=== PATIENT | female | born 1935 | race African-American/Black ===

== ENCOUNTER 2017-12-21 17:12 | Inpatient (IN) | payer MEDICARE, BC ==
[2017-12-21] VITALS (11 sets, daily range): BP systolic 114–165; BP diastolic 41–85
[~2017-12-21] VITALS: Ht 162.6 cm; Wt 76.9 kg
[~2017-12-21 17:12] MED LIST: CARVEDILOL6.25 MG ORAL; CATAPRES0.1 MG ORAL; ENALAPRIL MALEA20 MG ORAL; INDERAL10 MG PO; VERAPAMIL HCL40 M1 PO
--- NOTE | 2017-12-21 17:21 | Emergency Room Report ---
History of Present Illness General Chief Complaint: Dyspnea/Respdistress Source: EMS Present Illness HPI Patient is brought in by paramedics from nursing facility patient was found to be unresponsive And appears short of breath Upon arrival the patient is unresponsive There is no gag reflex appreciated And appears to be in respiratory failure Paramedics report history of CHF Unknown regarding the duration of symptoms Unknown regarding vomiting or diarrhea Unknown regarding recent fever history of present illness is significantly limited given the patient's emergent and nonverbal presentation Allergies: Coded Allergies: FD AND C BLUE NO.1 (Verified Allergy, Unknown, DIFFICULTY BREATHISNG, 12/22) HYDROMORPHONE (Verified Allergy, Unknown, RESTLESS, DISORIENTED, FLUSHED, 12/22/17) IODINE AND IODIDE CONTAINING PRODUC (Verified Allergy, Unknown, 12/22/17) IV CONTRAST MORPHINE (Verified Allergy, Unknown, ANAPHYLAXIS, 12/22/17) NITROGLYCERIN (Verified Allergy, Unknown, DIFFICULTY BREATHING, 12/22/17) Uncoded Allergies: DYE (FOOD COLORING) (Allergy, Unknown, DIFFICULTY BREATHING, 12/22/17) Patient History Limited by: medical condition Past Medical History: see triage record Pertinent Family History: unable to obtain Last Menstrual Period: Now: No Reviewed Nursing Documentation: PMH: Agreed; PSxH: Agreed Nursing Documentation-PMH Hx Cardiac Problems: Yes Hx Hypertension: Yes Hx Pacemaker: Yes Hx Cancer: No Hx Gastrointestinal Problems: Yes - GERD Hx Neurological Problems: No Review of Systems All Other Systems: limited - Other than the ones mentioned in the history of present illness all others are reviewed however they do stay limited due to the patient's mental status Physical Exam Vital Signs Date Time Temp Pulse Resp B/P (MAP) Pulse Ox O2 Delivery O2 Flow Rate FiO2 12/21/17 16:56 130 152/71 74 Nasal Cannula Sp02 EP Interpretation: reviewed, abnormal - 74% which is abnormally low, upon intubation and 100% oxygenation saturating at 100% which is normal General Appearance: severe distress Head: normocephalic, atraumatic Eyes: bilateral eye PERRL ENT: dry mucus membranes Neck: other - Patient is flexed Respiratory: crackles - Decreased breath sounds, diminished respiratory effort , respiratory failure Cardiovascular #1: regular rate, rhythm, no edema Gastrointestinal: non tender, soft Musculoskeletal: other - Patient unresponsive, GCS of 3 Neurologic: other - Significantly decreased GCS, unresponsive to physical or verbal stimuli Skin: normal color, no rash, other - PICC line in the right upper arm Lymphatic: no adenopathy Procedures Critical Care Time Critical Care Time 50 minutes for multiple re-evaluations critical presentation with respiratory failure requiring multiple reevaluation not including any procedural time Intubation Intubation : Consent: Emergent Intubation Method: orotracheal Tube Size (cm): 7.5 Medications: Succinylcholine Breath Sounds after Intubation: equal Intubation Complications: no complications Post Intubation Xray: Yes Progress/Xray Impression: see report Attempts: One Patient Tolerated: Well Complications: None Medical Decision Making Diagnostic Impression: Primary Impression: Respiratory failure requiring intubation Additional Impression: CHF (congestive heart failure) ER Course Upon arrival the patient is in respiratory failure Requiring airway intubation Patient's x-ray reveals pulmonary congestion cardiomegaly Blood work reveals kidney disease Patient at this time started to become more arousable and awake And admitted for further inpatient care Labs Test 12/21/17 17:05 12/21/17 17:16 12/21/17 17:36 White Blood Count 6.9 K/UL (4.8-10.8) Red Blood Count 3.51 M/UL (4.20-5.40) Hemoglobin 9.8 G/DL (12.0-16.0) Hematocrit 31.2 % (37.0-47.0) Mean Corpuscular Volume 89 FL (80-99) Mean Corpuscular Hemoglobin 27.8 PG (27.0-31.0) Mean Corpuscular Hemoglobin Concent 31.3 G/DL (32.0-36.0) Red Cell Distribution Width 15.9 % (11.6-14.8) Platelet Count 171 K/UL (150-450) Mean Platelet Volume 7.2 FL (6.5-10.1) Neutrophils (%) (Auto) 78.8 % (45.0-75.0) Lymphocytes (%) (Auto) 12.5 % (20.0-45.0) Monocytes (%) (Auto) 4.5 % (1.0-10.0) Eosinophils (%) (Auto) 3.1 % (0.0-3.0) Basophils (%) (Auto) 1.0 % (0.0-2.0) Sodium Level 140 MMOL/L (136-145) Potassium Level 5.2 MMOL/L (3.5-5.1) Chloride Level 105 MMOL/L (98-107) Carbon Dioxide Level 28 MMOL/L (21-32) Anion Gap 7 mmol/L (5-15) Blood Urea Nitrogen 32 mg/dL (7-18) Creatinine 2.1 MG/DL (0.55-1.30) Estimat Glomerular Filtration Rate mL/min (>60) Glucose Level 209 MG/DL (74-106) Lactic Acid Level 1.90 mmol/L (0.66-2.22) Calcium Level 10.9 MG/DL (8.5-10.1) Total Bilirubin 0.4 MG/DL (0.2-1.0) Aspartate Amino Transf (AST/SGOT) 27 U/L (15-37) Alanine Aminotransferase (ALT/SGPT) 24 U/L (12-78) Alkaline Phosphatase 88 U/L (46-116) Total Creatine Kinase 60 U/L (26-308) Creatine Kinase MB 0.5 NG/ML (0.0-3.6) Creatine Kinase MB Relative Index 0.8 Troponin I 0.014 ng/mL (0.000-0.056) Pro-B-Type Natriuretic Peptide 36051 pg/mL (0-125) Total Protein 7.3 G/DL (6.4-8.2) Albumin 2.7 G/DL (3.4-5.0) Globulin 4.6 g/dL Albumin/Globulin Ratio 0.6 (1.0-2.7) Triglycerides Level 70 MG/DL (30-150) Lipase 106 U/L (73-393) Arterial Blood pH 7.330 (7.350-7.450) Arterial Blood Partial Pressure CO2 51.3 mmHg (35.0-45.0) Arterial Blood Partial Pressure O2 303.4 mmHg (75.0-100.0) Arterial Blood HCO3 26.4 mmol/L (22.0-26.0) Arterial Blood Oxygen Saturation 99.2 % (92.0-98.0) Arterial Blood Base Excess 0.1 Chris Test Positive Urine Color Yellow Urine Appearance Clear Urine pH 6 (4.5-8.0) Urine Specific [place] 1.015 (1.005-1.035) Urine Protein 4+ (NEGATIVE) Urine Glucose (UA) Negative (NEGATIVE) Urine Ketones Negative (NEGATIVE) Urine Occult Blood Negative (NEGATIVE) Urine Nitrite Negative (NEGATIVE) Urine Bilirubin Negative (NEGATIVE) Urine Urobilinogen Normal MG/DL (0.0-1.0) Urine Leukocyte Esterase 1+ (NEGATIVE) Urine RBC 0-2 /HPF (0 - 2) Urine WBC 2-4 /HPF (0 - 2) Urine Squamous Epithelial Cells Moderate /LPF (NONE/OCC) Urine Amorphous Sediment Few /LPF (NONE) Urine Bacteria Few /HPF (NONE) EKG Diagnostic Results Rate: normal Rhythm: NSR ST Segments: no acute changes Rhythm Strip Diag. Results EP Interpretation: yes Rate: 60 Rhythm: NSR, no PVC's, no ectopy Chest X-Ray Diagnostic Results Chest X-Ray Diagnostic Results : Chest X-Ray Ordered: Yes # of Views/Limited/Complete: 1 View Indication: Chest Pain EP Interpretation: Yes Interpretation: no consolidation, no pneumothorax, other - ET tube appropriately positions, pulmonary congestion, cardiomegaly, increased left lower lobe markings Impression: Other - CHF, possible infiltrate Electronically Signed by: Yolanda Tate DO CT/MRI/US Diagnostic Results CT/MRI/US Diagnostic Results : Impression CT head:nad Last Vital Signs Date Time Temp Pulse Resp B/P (MAP) Pulse Ox O2 Delivery O2 Flow Rate FiO2 12/21/17 16:56 130 152/71 74 Nasal Cannula Status: improved Disposition: ADMITTED INPATIENT Condition: Critical Yolanda Tate DO Dec 21, 2017 17:21
[2017-12-21 17:49] LABS: EOSINOPHILS % (AUTO) 3.1 % (0.0-3.0); HEMATOCRIT 31.2 % (37.0-47.0); HEMOGLOBIN 9.8 G/DL (12.0-16.0); LYMPHOCYTES % (AUTO) 12.5 % (20.0-45.0); MEAN CORPUSCULAR VOLUME 89 FL (80-99); MONOCYTES % (AUTO) 4.5 % (1.0-10.0); NEUTROPHILS % (AUTO) 78.8 % (45.0-75.0); PLATELET COUNT 171 K/UL (150-450); RED BLOOD COUNT 3.51 M/UL (4.20-5.40); RED CELL DISTRIBUTION WIDTH 15.9 % (11.6-14.8); WHITE BLOOD COUNT 6.9 K/UL (4.8-10.8)
[2017-12-21 17:58] LABS: APPEARANCE,URINE CLEAR; BILIRUBIN, URINE NEGATIVE (NEGATIVE); GLUCOSE, URINE (UA) NEGATIVE (NEGATIVE); KETONES,URINE NEGATIVE (NEGATIVE); LEUKOCYTE ESTERASE ,URINE 1+ (NEGATIVE); NITRITE,URINE NEGATIVE (NEGATIVE); PH,URINE 6 (4.5-8.0); PROTEIN,URINE 4+ (NEGATIVE); UROBILINOGEN,URINE NORMAL MG/DL (0.0-1.0)
[2017-12-21 18:00] LABS: COLOR,URINE YELLOW
[2017-12-21 18:26] LABS: ANION GAP 7 mmol/L (5-15); BLOOD UREA NITROGEN 32 mg/dL (7-18); CALCIUM 10.9 MG/DL (8.5-10.1); CARBON DIOXIDE 28 MMOL/L (21-32); CHLORIDE 105 MMOL/L (98-107); CREATININE 2.1 MG/DL (0.55-1.30); POTASSIUM 5.2 MMOL/L (3.5-5.1); SODIUM 140 MMOL/L (136-145)
[2017-12-21 18:30] LABS: ALANINE AMINOTRANSFERASE 24 U/L (12-78); ALBUMIN 2.7 G/DL (3.4-5.0); ALBUMIN/GLOBULIN RATIO 0.6 (1.0-2.7); ALKALINE PHOSPHATASE 88 U/L (46-116); ASPARTATE AMINO TRANSFERASE 27 U/L (15-37); BILIRUBIN,TOTAL 0.4 MG/DL (0.2-1.0); CKMB 0.5 NG/ML (0.0-3.6); CREATINE KINASE 60 U/L (26-308)
[2017-12-21] MEDS ORDERED: cefTRIAXone 1 GM in NS 55 ML IVPB ONE (18:30)
[2017-12-21] MEDS ORDERED: Vancomycin 1 GM in NS 275 ML IVPB ONE (18:30)
[2017-12-21] MEDS ORDERED: Acetaminophen 650 MG SUPP RECTAL ONE (18:45)
[2017-12-21] MEDS ORDERED: Rx Monitoring Vancomycin MISC PRN (20:00)
[2017-12-21] MEDS ORDERED: Vancomycin 1 GM in D5W 275 ML IV SCH (20:30)
[2017-12-21] MEDS: Cefepime HCl 2 GM in D5W 110 ML IV SCH (20:51)
[2017-12-21] MEDS: Enoxaparin 30mg Inj SUBQ SCH (21:17)
[2017-12-21] MEDS: LORazepam Inj 2mg/ml 1ml IV PRN (22:16)
[2017-12-22] VITALS (25 sets, daily range): BP systolic 128–169; BP diastolic 36–96
--- NOTE | 2017-12-22 00:30 | Consultation ---
DATE OF CONSULTATION: 12/21/2017 CARDIOLOGY CONSULTATION CONSULTING PHYSICIAN: Judd Longoria M.D. REQUESTING PHYSICIAN: Nolan Murray M.D. REASON FOR CONSULTATION: Respiratory failure in the setting of ischemic cardiomyopathy with cardiac defibrillator. HISTORY OF PRESENT ILLNESS: This is an 82-year-old female. She resides at a alf facility. She was apparently short of breath and subsequently found unresponsive. Paramedics were summoned. She was transported to this emergency room. The patient was urgently orally intubated, placed on mechanical ventilation, and admitted to the intensive care unit. I have been asked to assist with for further cardiovascular care. PAST MEDICAL HISTORY: Includes coronary artery disease, history of myocardial infarction, history of cardiac catheterization in 2015 revealing severe right coronary atherosclerosis, history of nonsustained ventricular tachycardia, history of cardiac defibrillator, detrusor instability, hyperlipidemia, hypertensive heart disease, status post hysterectomy, status post cataract surgery, COPD, chronic kidney disease, history of benzodiazepine dependence, chronic migraine, obesity, history of congestive heart failure. MEDICATIONS: Prior to admission, reviewed and reconciled. ALLERGIES: Include Dilaudid, morphine, iodine, and possibly nitroglycerin. SOCIAL HISTORY: Former smoker. No alcohol or substance abuse. FAMILY HISTORY: Noncontributory. REVIEW OF SYSTEMS: Not presently obtainable from patient. Pertinent data outlined above. History of benzodiazepine dependence PHYSICAL EXAMINATION: GENERAL: Awake and alert at this time following commands, orally intubated, mechanically ventilated. VITAL SIGNS: Blood pressure 150/70, heart rate 130, respiratory rate 20, afebrile. HEENT: Conjunctivae are pink. Oropharynx clear. Endotracheal tube in place. NECK: Supple and obese. Cannot assess jugular venous pressure , but carotid upstrokes are palpable bilaterally. LUNGS: With bilateral rales. CARDIAC: Regular rhythm and rate. Normal S1. Paradoxically split S2. ABDOMEN: Soft, nontender, and obese. EXTREMITIES: There is 1+ dependent edema. Right upper extremity, PICC line site is clean and dry. LABORATORY DATA: White count 6.9, hemoglobin 9.8. Sodium 140, potassium 5.2, bicarbonate 28, BUN 32, creatinine 2.1. CK 60. Troponin 0.014 and pro-natriuretic peptide 19,081. Albumin is 2.7. ABG, 7.33, 51, 303. Urinalysis with no active sediment. IMPRESSION: 1. Acute respiratory failure. 2. Acute on chronic systolic and diastolic congestive heart failure. 3. Acute on chronic respiratory acidosis. 4. Ischemic and hypertensive cardiomyopathy. 5. Cardiac defibrillator with history of ventricular tachycardia. 6. Coronary artery disease with history of myocardial infarction. 7. Right coronary artery disease. 8. Renal failure, likely acute on chronic. RECOMMENDATIONS: ICU care. Ventilator support. Cardiac monitoring. Serial troponin. Titration of antihypertensive regimen. Continue beta blockade. DVT and stress ulcer prophylaxis with subcutaneous Lovenox and proton pump inhibitors respectively. NG-tube for nutrition and medication. Continue antiplatelet therapy and statin drug. Empiric antibiotics. Further recommendations will follow based on clinical course. Judd Longoria M.D. DR: Sara JOB#: [id number] CC:
[2017-12-22] MEDS: Albuterol/Ipratropium 3ml neb HHN SCH ×4 (01:16→19:54)
[2017-12-22] MEDS: HydrALAZINE 25mg tab ORAL PRN ×4 (01:30→15:22)
[2017-12-22 04:53] LABS: HEMATOCRIT 25.3 % (37.0-47.0); HEMOGLOBIN 8.1 G/DL (12.0-16.0); MEAN CORPUSCULAR VOLUME 88 FL (80-99); PLATELET COUNT 138 K/UL (150-450); RED CELL DISTRIBUTION WIDTH 15.8 % (11.6-14.8); WHITE BLOOD COUNT 7.1 K/UL (4.8-10.8)
[2017-12-22 05:02] LABS: ALANINE AMINOTRANSFERASE 18 U/L (12-78); ALBUMIN 2.2 G/DL (3.4-5.0); ALKALINE PHOSPHATASE 68 U/L (46-116); ANION GAP 7 mmol/L (5-15); ASPARTATE AMINO TRANSFERASE 18 U/L (15-37); BILIRUBIN,DIRECT < 0.1 MG/DL (0.0-0.3); BILIRUBIN,TOTAL 0.3 MG/DL (0.2-1.0); BLOOD UREA NITROGEN 36 mg/dL (7-18); CALCIUM 8.8 MG/DL (8.5-10.1); CARBON DIOXIDE 28 MMOL/L (21-32); CHLORIDE 107 MMOL/L (98-107); PHOSPHORUS 4.7 MG/DL (2.5-4.9); POTASSIUM 4.5 MMOL/L (3.5-5.1); SODIUM 142 MMOL/L (136-145)
[2017-12-22] MEDS: LORazepam Inj 2mg/ml 1ml IV PRN ×3 (05:48→15:22)
--- NOTE | 2017-12-22 08:40 | Diagnostic Imaging Report ---
Indication: Shortness of breath Technique: One view of the chest Comparison: none Findings: The heart is borderline enlarged. There is extensive interstitial and airspace disease bilaterally, with dense consolidation seen in the left lower lobe. There is an endotracheal tube in place, tip projecting approximately 7 cm above the cam. There is a right arm PICC. There is a left chest AICD Impression: Bilateral interstitial and airspace disease, infiltrates versus edema. Borderline cardiomegaly Satisfactory endotracheal intubation Other findings as noted
[2017-12-22] MEDS ORDERED: Carvedilol 6.25mg Tab ORAL SCH (09:00)
[2017-12-22] MEDS ORDERED: Lisinopril 20mg tab ORAL SCH ×2 (09:00→18:30)
[2017-12-22] MEDS ORDERED: Lisinopril 10mg tab ORAL SCH (09:00)
[2017-12-22] MEDS: Carvedilol 6.25mg Tab ORAL SCH ×2 (09:19→17:27)
[2017-12-22] MEDS ORDERED: NS 275ml ONE (09:35)
[2017-12-22] MEDS ORDERED: Tubing IV Secondary IV ONE (09:35)
[2017-12-22] MEDS: Aspirin Baby 81mg NG SCH (10:32)
--- NOTE | 2017-12-22 10:35 | Diagnostic Imaging Report ---
Indication: Status post nasogastric tube placement Technique: One view of the chest Comparison: none Findings: There is a nasogastric tube in place, tip which projects at the level of the gastric antrum body junction. Proximal port is probably just beyond the gastroesophageal junction. The bowel gas pattern is grossly unremarkable. The aorta is tortuous and calcified Impression: Satisfactory nasogastric intubation. Other findings as described
--- NOTE | 2017-12-22 13:36 | Cardiology Report ---
APPROVED REPORT EXAM: Two-dimensional and M-mode echocardiogram with Doppler and color Doppler. INDICATION Congestive Heart Failure M-Mode DIMENSIONS IVSd1.2 (0.7-1.1cm)Left Atrium (MM)4.3 (1.6-4.0cm) LVDd5.7 (3.5-5.6cm)Aortic Root3.2 (2.0-3.7cm) PWd1.5 (0.7-1.1cm)Aortic Cusp Exc.1.8 (1.5-2.0cm) LVDs4.6 (2.5-4.0cm) PWs1.6 cm Technically difficult study due to poor acoustical windows. Normal left ventricular chamber size, systolic function and wall motion. Left ventricular ejection fraction estimated to be 55-60%. Mild left ventricular hypertrophy. Small to moderate pericardial effusion with partial RA free wall collapse. Right cardiac chamber sizes are within normal limits. Moderate left atrial enlargement by 2D. Focal aortic valve sclerosis with adequate cusp excursion. Possible aortic valve reverberation artifact. Vegitation can not be excluded,clinical correlation recommended. Thickened mitral valve leaflets with normal excursion. Mild mitral annulus and aortic root calcification. Pulmonic valve is well visualized. Normal tricuspid valve structure. IVC is normal in size minimal collapse with respiration indicate increased RA pressure. Probable pacemaker wire present in the right side chambers. [place] recommned repeatin the echo in near future for Cardiac Tamponade surveillance. A color flow and spectral Doppler study was performed and revealed: Mild aortic regurgitation. Mild mitral regurgitation. Mitral diastolic velocities suggest reduced left ventricular relaxation c/w diastolic dysfunction grade 1. Trace tricuspid regurgitation. Tricuspid systolic velocities suggests peak right ventricular systolic pressure of 30 mmHg Pulmonic regurgitation present. Clinical criteria:
--- NOTE | 2017-12-22 13:42 | Cardiology Report ---
APPROVED REPORT EKG Measurement Heart [id number] Normal sinus rhythm Left axis deviation Nonspecific intraventricular block Cannot rule out Anterior infarct, age undetermined Abnormal ECG
--- NOTE | 2017-12-22 14:51 | Diagnostic Imaging Report ---
Indications: Altered mental status Technique: Spiral acquisitions obtained through the brain. Angled axial and coronal 5 x 5 mm slices were reconstructed. Total dose length product 1351.45 mGycm. CTDI vol(s) 70.38 mGy. Dose reduction achieved using automated exposure control Comparison: None. Findings: No acute hemorrhage or edema. No mass effect nor midline shift. There is very mild age-related enlargement of the ventricles and extra axial CSF spaces. There is minimal periventricular deep white matter low-attenuation consistent with chronic ischemic change. There is calvarial hyperostosis. Normal kimball-white differentiation. The mastoids are clear. Orbits demonstrate evidence of prior bilateral cataract surgery. Impression: Chronic and age-related changes. Negative for acute intracranial bleed or mass effect The CT scanner at [facility] is accredited by the [employer] and the scans are performed using protocols designed to limit radiation exposure to as low as reasonably achievable to attain images of sufficient resolution adequate for diagnostic evaluation.
[2017-12-22] MEDS: Dyna-Hex 2% Top Sol 2oz TOPIC SCH (19:40)
[2017-12-22] MEDS: Cefepime HCl 2 GM in D5W 110 ML IV SCH (20:53)
[2017-12-22] MEDS: Zolpidem 5mg tab ORAL PRN (20:53)
[2017-12-22] MEDS: Carvedilol 12.5mg tab ORAL SCH (20:54)
[2017-12-22] MEDS: Enoxaparin 30mg Inj SUBQ SCH (20:55)
[2017-12-22] MEDS ORDERED: Propranolol 10mg tab NG SCH (21:00)
[2017-12-23] VITALS (24 sets, daily range): BP systolic 120–152; BP diastolic 29–100
[2017-12-23] MEDS: Albuterol/Ipratropium 3ml neb HHN SCH ×4 (01:28→19:52)
--- NOTE | 2017-12-23 03:00 | Progress Note ---
DATE: 12/22/2017 SUBJECTIVE: The patient remains in the intensive care unit. Condition remains critical. Prognosis is guarded. The patient remains on ventilator support. Orally intubated. OBJECTIVE: VITAL SIGNS: Temperature 99.5 degrees, blood pressure 168/51, heart rate 77, respiratory rate 16. GENERAL: Orally intubated. Mechanically ventilated. LUNGS: Bilateral rales. HEART: Regular rhythm and rate. Normal S1, S2. ABDOMEN: Soft. EXTREMITIES: With 1+ dependent edema. LABORATORY DATA: White count 7.1, hemoglobin 8.1. Sodium 142, potassium 4.5, bicarbonate 28, BUN 36, creatinine 2.0, magnesium 3.7. Troponin 0.166. Pro-natriuretic peptide is 31,000. Albumin is 2.2. IMPRESSION: 1. Acute respiratory failure. 2. Cardiogenic shock. 3. Pericardial effusion. 4. Acute on chronic respiratory acidosis. 5. Acute on chronic systolic and diastolic congestive heart failure. 6. Severe protein-calorie malnutrition. 7. Healthcare-acquired pneumonia. 8. Anemia. 9. Remains critical and guarded. 10. Hypertensive cardiomyopathy. 11. Ischemic heart disease with history of myocardial infarction and right coronary occlusion. PLAN: Followup ABG, chest x-ray, and lab studies. Continue antimicrobials. Empiric antibiotics. Respiratory hygiene. Wean as able. Continue anti-failure and antihypertensive regimen with up-titration. Further recommendations will follow. Judd Longoria M.D. DR: Sara JOB#: [id number] CC:
[2017-12-23] MEDS: LORazepam Inj 2mg/ml 1ml IV PRN ×2 (04:17→15:27)
[2017-12-23] MEDS: HydrALAZINE 25mg tab ORAL PRN (04:17)
[2017-12-23 05:47] LABS: BASOPHILS % (AUTO) 0.4 % (0.0-2.0); EOSINOPHILS % (AUTO) 2.7 % (0.0-3.0); HEMATOCRIT 25.3 % (37.0-47.0); HEMOGLOBIN 8.2 G/DL (12.0-16.0); LYMPHOCYTES % (AUTO) 8.9 % (20.0-45.0); MEAN CORPUSCULAR VOLUME 87 FL (80-99); MONOCYTES % (AUTO) 9.8 % (1.0-10.0); NEUTROPHILS % (AUTO) 78.2 % (45.0-75.0); PLATELET COUNT 140 K/UL (150-450); RED BLOOD COUNT 2.91 M/UL (4.20-5.40); RED CELL DISTRIBUTION WIDTH 15.3 % (11.6-14.8); WHITE BLOOD COUNT 7.7 K/UL (4.8-10.8)
[2017-12-23 06:18] LABS: ALANINE AMINOTRANSFERASE 17 U/L (12-78); ALBUMIN 2.3 G/DL (3.4-5.0); ALBUMIN/GLOBULIN RATIO 0.6 (1.0-2.7); ALKALINE PHOSPHATASE 65 U/L (46-116); ANION GAP 7 mmol/L (5-15); ASPARTATE AMINO TRANSFERASE 15 U/L (15-37); BILIRUBIN,TOTAL 0.4 MG/DL (0.2-1.0); BLOOD UREA NITROGEN 49 mg/dL (7-18); CALCIUM 8.8 MG/DL (8.5-10.1); CARBON DIOXIDE 30 MMOL/L (21-32); CHLORIDE 108 MMOL/L (98-107); CREATININE 2.2 MG/DL (0.55-1.30); POTASSIUM 3.5 MMOL/L (3.5-5.1); SODIUM 145 MMOL/L (136-145)
--- NOTE | 2017-12-23 07:29 | History & Physical ---
History and Physical History & Physicial seen 12/22/17 1. Acute respiratory failure. 2. Cardiogenic shock. 3. Pericardial effusion. 4. Acute on chronic respiratory acidosis. 5. Acute on chronic systolic and diastolic congestive heart failure. 6. Severe protein-calorie malnutrition. 7. Healthcare-acquired pneumonia. 8. Anemia. 9. Remains critical and guarded. 10. Hypertensive cardiomyopathy. 11. Ischemic heart disease with history of myocardial infarction and right coronary occlusion. dict wean as tolerated abx cardiac care Nolan Murray MD Dec 23, 2017 07:29
[2017-12-23] MEDS: Aspirin Baby 81mg NG SCH (08:24)
[2017-12-23] MEDS: Lisinopril 20mg tab ORAL SCH ×2 (08:25→17:37)
[2017-12-23] MEDS: Carvedilol 12.5mg tab ORAL SCH ×2 (08:25→21:12)
--- NOTE | 2017-12-23 09:44 | Diagnostic Imaging Report ---
Indication: Respiratory failure Technique: XRAY Chest 1v Comparison: 12/21/2017 Findings: ET tube unchanged in position, with tip just below level the clavicles. Nasogastric tube tip in the proximal stomach. PICC line has its catheter tip in the region of the lower SVC. Pacemaker unchanged. Heart size and mediastinal contours appear stable allowing for differences in patient rotation. There is slight improvement in bilateral interstitial opacification. There is persistent retrocardiac axis/consolidation, also slightly improved. No definite pneumothorax. Osseous structures are stable. IMPRESSION: Slight interval improved aeration with slight interval decrease in bilateral interstitial opacities/edema. Retrocardiac opacification is also slightly decreased. Report lines/tubes stable in position.
--- NOTE | 2017-12-23 17:18 | Pulmonology Progress Note ---
Assessment/Plan Assessment/Plan 1. Acute respiratory failure. 2. Cardiogenic shock. 3. Pericardial effusion. 4. Acute on chronic respiratory acidosis. 5. Acute on chronic systolic and diastolic congestive heart failure. 6. Severe protein-calorie malnutrition. 7. Healthcare-acquired pneumonia. 8. Anemia. 9. Ischemic heart disease with history of myocardial infarction and right coronary occlusion. 10. Hypertensive cardiomyopathy. ventilation better weaning tolerated well extubated this AM after my visit start PO feeds BNP >35k cont lasix echo reviewed Subjective Constitutional: Denies: fever Respiratory: Denies: shortness of breath Allergies: Coded Allergies: FD AND C BLUE NO.1 (Verified Allergy, Unknown, DIFFICULTY BREATHISNG, 12/22) HYDROMORPHONE (Verified Allergy, Unknown, RESTLESS, DISORIENTED, FLUSHED, 12/22/17) IODINE AND IODIDE CONTAINING PRODUC (Verified Allergy, Unknown, 12/22/17) IV CONTRAST MORPHINE (Verified Allergy, Unknown, ANAPHYLAXIS, 12/22/17) NITROGLYCERIN (Verified Allergy, Unknown, DIFFICULTY BREATHING, 12/22/17) Uncoded Allergies: DYE (FOOD COLORING) (Allergy, Unknown, DIFFICULTY BREATHING, 12/22/17) Objective Last 24 Hour Vital Signs Date Time Temp Pulse Resp B/P (MAP) Pulse Ox O2 Delivery O2 Flow Rate FiO2 12/23/17 16:00 78 12/23/17 16:00 98.1 74 23 147/44 97 Nasal Cannula 3.0 98.1 12/23/17 15:00 60 21 144/30 100 Nasal Cannula 3.0 12/23/17 14:00 67 21 132/32 100 Nasal Cannula 3.0 12/23/17 13:00 60 21 147/30 100 Nasal Cannula 3.0 12/23/17 12:59 63 20 100 Nasal Cannula 2.0 28 12/23/17 12:50 61 18 100 Nasal Cannula 2.0 28 12/23/17 12:00 62 12/23/17 12:00 98.5 63 21 142/31 100 Nasal Cannula 3.0 98.5 12/23/17 11:00 64 19 137/30 100 Nasal Cannula 3.0 12/23/17 10:00 75 22 138/41 100 Nasal Cannula 3.0 12/23/17 09:17 Nasal Cannula 3.0 32 12/23/17 09:17 99 Nasal Cannula 3.0 32 12/23/17 09:00 70 22 144/35 99 Mechanical Ventilator 30 12/23/17 09:00 Nasal Cannula 3.0 32 12/23/17 08:25 134/32 12/23/17 08:25 70 134/32 12/23/17 08:00 71 12/23/17 08:00 99.0 70 22 134/32 99 Mechanical Ventilator 30 99.0 12/23/17 07:30 72 12 100 Mechanical Ventilator 30 12/23/17 07:21 30 12/23/17 07:20 73 12 100 Mechanical Ventilator 30 12/23/17 07:16 78 24 30 12/23/17 07:00 68 18 123/29 100 Mechanical Ventilator 30 12/23/17 06:00 66 15 120/29 100 Mechanical Ventilator 30 12/23/17 05:20 71 18 30 12/23/17 05:00 74 20 133/30 99 Mechanical Ventilator 30 12/23/17 04:17 151/34 12/23/17 04:00 30 12/23/17 04:00 98.1 74 19 151/34 99 Mechanical Ventilator 30 98.1 12/23/17 03:28 68 17 30 12/23/17 03:21 74 19 30 12/23/17 03:05 73 12/23/17 03:00 76 20 149/53 99 Mechanical Ventilator 30 12/23/17 02:00 67 12 151/47 100 Mechanical Ventilator 30 12/23/17 01:29 65 12 100 Mechanical Ventilator 30 12/23/17 01:24 78 17 30 12/23/17 01:21 66 12 100 Mechanical Ventilator 35 12/23/17 01:00 68 17 135/100 98 Mechanical Ventilator 30 12/23/17 00:00 30 12/23/17 00:00 99.7 75 16 134/39 98 Mechanical Ventilator 30 99.7 12/22/17 23:32 72 12/22/17 23:27 69 16 30 12/22/17 23:00 69 16 143/68 100 Mechanical Ventilator 30 12/22/17 22:00 68 15 138/41 98 Mechanical Ventilator 30 12/22/17 21:26 82 18 30 12/22/17 21:00 73 19 156/46 99 Mechanical Ventilator 30 12/22/17 20:54 73 148/50 12/22/17 20:17 76 12/22/17 20:00 99.5 77 16 168/51 100 Mechanical Ventilator 30 99.5 12/22/17 20:00 30 12/22/17 19:18 77 12 100 Mechanical Ventilator 30 12/22/17 19:07 77 12 30 12/22/17 19:07 76 12 100 Mechanical Ventilator 35 12/22/17 19:00 70 22 140/96 99 Mechanical Ventilator 30 12/22/17 18:38 166/49 12/22/17 18:00 79 20 166/49 100 Mechanical Ventilator 30 12/22/17 17:27 86 148/38 Intake and Output 12/22/17 12/23/17 19:00 07:00 Intake Total 390 ml 700 ml Output Total 1470 ml 850 ml Balance -1080 ml -150 ml IV Total 110 ml Tube Feeding 130 ml 430 ml Other 260 ml 160 ml Output Urine Total 1470 ml 850 ml General Appearance: no acute distress Respiratory/Chest: rhonchi Cardiovascular: normal rate Abdomen: soft, non tender Microbiology Date/Time Source Procedure Growth Status 12/21/17 17:10 Blood Blood Culture - Preliminary NO GROWTH AFTER 24 HOURS Resulted 12/21/17 17:05 Blood Blood Culture - Preliminary NO GROWTH AFTER 24 HOURS Resulted 12/22/17 04:45 Sputum Gram Stain - Final Resulted 12/22/17 04:45 Sputum Sputum Culture - Preliminary NO GROWTH AFTER 24 HOURS Resulted Laboratory Tests 12/23/17 03:55: White Blood Count 7.7, Red Blood Count 2.91L, Hemoglobin 8.2L, Hematocrit 25.3L , Mean Corpuscular Volume 87, Mean Corpuscular Hemoglobin 28.1, Mean Corpuscular Hemoglobin Concent 32.3, Red Cell Distribution Width 15.3H, Platelet Count 140L, Mean Platelet Volume 8.1, Neutrophils (%) (Auto) 78.2H, Lymphocytes (%) (Auto) 8.9L, Monocytes (%) (Auto) 9.8, Eosinophils (%) (Auto) 2.7, Basophils (%) (Auto) 0.4, Sodium Level 145, Potassium Level 3.5, Chloride Level 108H, Carbon Dioxide Level 30, Anion Gap 7, Blood Urea Nitrogen 49H, Creatinine 2.2H, Estimat Glomerular Filtration Rate , Glucose Level 104, Calcium Level 8.8, Magnesium Level 3.4H, Total Bilirubin 0.4, Aspartate Amino Transf (AST/SGOT) 15, Alanine Aminotransferase (ALT/SGPT) 17, Alkaline Phosphatase 65, Pro-B-Type Natriuretic Peptide > 79251E, Total Protein 6.2L, Albumin 2.3L, Globulin 3.9, Albumin/Globulin Ratio 0.6L 12/23/17 10:10: Arterial Blood pH 7.412, Arterial Blood Partial Pressure CO2 46.2H, Arterial Blood Partial Pressure O2 95.7, Arterial Blood HCO3 28.8H, Arterial Blood Oxygen Saturation 97.0, Arterial Blood Base Excess 3.7, Chris Test Positive Current Medications Medications (Trade) Dose Ordered Sig/Leonarda Route PRN Reason Start Time Stop Time Status Last Admin Dose Admin Acetaminophen (Tylenol) 650 mg Q4H PRN ORAL Mild Pain (Pain Scale 1-3) 12/21/17 19:30 01/20/18 19:29 Albuterol/ Ipratropium (Albuterol/ Ipratropium) 3 ml Q6HRT HHN 12/22/17 01:00 12/27/17 00:59 12/23/17 12:55 Aspirin (ASA) 81 mg DAILY NG 12/22/17 09:00 01/21/18 08:59 12/23/17 08:24 Carvedilol (Coreg) 12.5 mg EVERY 12 HOURS ORAL 12/22/17 21:00 01/21/18 20:59 12/23/17 08:25 Cefepime HCl 2 gm/ Dextrose 110 ml @ 220 mls/hr Q24H IV 12/21/17 21:00 12/28/17 23:59 12/22/17 20:53 Chlorhexidine Gluconate (Kelsi-Hex 2%) 1 applic DAILY@2000 TOPIC 12/22/17 20:00 01/21/18 19:59 12/22/17 19:40 Dextrose (Dextrose 50%) 25 ml STAT PRN IV Hypoglycemia 12/21/17 19:30 01/20/18 19:29 Dextrose (Dextrose 50%) 50 ml STAT PRN IV Hypoglycemia 12/21/17 19:30 01/20/18 19:29 Enoxaparin Sodium (Lovenox) 30 mg QHS SUBQ 12/21/17 21:00 01/20/18 20:59 12/22/17 20:55 Furosemide (Lasix) 40 mg EVERY 12 HOURS IV 12/22/17 09:30 01/21/18 09:29 12/23/17 08:24 Hydralazine HCl (Apresoline) 25 mg Q4HR PRN ORAL SBP above 150 12/21/17 23:30 01/20/18 23:29 12/23/17 04:17 Lansoprazole (Prevacid) 30 mg DAILY NG 12/23/17 09:30 01/22/18 09:29 12/23/17 10:32 Levofloxacin 100 ml @ 100 mls/hr Q48H IVPB 12/23/17 21:30 12/30/17 23:59 Lisinopril (Prinivil) 20 mg BID ORAL 12/23/17 09:00 01/22/18 08:59 12/23/17 08:25 Lorazepam (Ativan 2mg/ml 1ml) 0.5 mg Q4H PRN IV For Anxiety 12/21/17 19:30 12/28/17 19:29 12/23/17 15:27 Vancomycin HCl (Rx Monitoring Vancomycin) 1 ea DAILY PRN MISC RX TO DOSE 12/21/17 20:00 01/20/18 19:59 Vancomycin HCl 1 gm/Dextrose 275 ml @ 183.708 mls/hr Q48H IVPB 12/23/17 18:00 12/28/17 17:59 Zolpidem Tartrate (Ambien) 5 mg HSPRN PRN ORAL Insomnia 12/22/17 18:30 12/29/17 18:29 12/22/17 20:53 Nolan Murray MD Dec 23, 2017 17:18
[2017-12-23] MEDS ORDERED: Vancomycin 1gm in D5W 275ml IVPB SCH (18:00)
--- NOTE | 2017-12-23 19:00 | History and Physical Report ---
DATE OF ADMISSION: 12/21/2017 CHIEF COMPLAINT: Respiratory failure. HISTORY OF PRESENT ILLNESS: The patient is an 82-year-old female who was transferred from a nursing facility when she became poorly responsive with acute respiratory failure. She was intubated and admitted to intensive care. PAST MEDICAL HISTORY: Coronary heart disease with myocardial infarction, arrhythmia with cardiac defibrillator, hypertension with hypertensive heart disease, hyperlipidemia, COPD, chronic kidney disease, and congestive heart failure. MEDICATIONS: Reviewed and reconciled. ALLERGIES: Dilaudid, morphine, iodine, and nitroglycerin. SOCIAL HISTORY: She lives in a assisted. She is a former smoker. REVIEW OF SYSTEMS: Cannot be obtained. PHYSICAL EXAMINATION: GENERAL: The patient is awake and alert and makes eye contact. She nods her head appropriately to questions. She is on a ventilator and orally intubated. VITAL SIGNS: Stable. She was tachycardic earlier. HEENT: Head is normocephalic. She appears well developed and well nourished. NECK: No jugular vein distention. CHEST: Few rhonchi. CARDIAC: Rhythm is regular. ABDOMEN: Soft and nontender. EXTREMITIES: No clubbing, cyanosis, or edema. LABORATORY AND DIAGNOSTIC DATA: Laboratory studies are reviewed. Blood gas shows mild respiratory acidosis. Chest x-ray shows infiltrates and possible edema, cardiomegaly, endotracheal tube in good position. Natriuretic peptide is markedly elevated at 31,000. IMPRESSION: 1. Acute respiratory failure. 2. Congestive heart failure. 3. Pneumonia 4. Chronic obstructive pulmonary disease. 5. Anemia. 6. Hypertensive heart disease 7. Ischemic heart disease. PLAN: The patient will be given Lasix, antibiotics. Cardiology consultation has been obtained. Wean from ventilator as tolerated. Echocardiogram was requested. Nolan Murray M.D. DR: Willie JOB#: [id number] CC: Judd Longoira M.D. MTDPatrick
[2017-12-23] MEDS: Zolpidem 5mg tab ORAL PRN (19:47)
[2017-12-23] MEDS: Dyna-Hex 2% Top Sol 2oz TOPIC SCH (20:08)
[2017-12-23] MEDS: Cefepime HCl 2 GM in D5W 110 ML IV SCH (21:12)
[2017-12-23] MEDS: Enoxaparin 30mg Inj SUBQ SCH (21:15)
[2017-12-23] MEDS ORDERED: Milk of Magnesia 30ml Ud ORAL PRN (22:45)
[2017-12-24] VITALS (24 sets, daily range): BP systolic 121–192; BP diastolic 31–58
[2017-12-24] MEDS: Albuterol/Ipratropium 3ml neb HHN SCH ×4 (01:08→19:18)
[2017-12-24] MEDS: LORazepam Inj 2mg/ml 1ml IV PRN ×3 (02:16→17:14)
--- NOTE | 2017-12-24 04:00 | Progress Note ---
DATE: 12/23/2017 CARDIOLOGY PROGRESS NOTE SUBJECTIVE: The patient was extubated earlier today. No respiratory distress noted. She is quite anxious. OBJECTIVE: VITAL SIGNS: Blood pressure 148/40, pulse 74, respiratory rate 21, afebrile, oxygen saturation on 2 liters 97%. LUNGS: Bilateral rales. HEART: Regular rhythm and rate. Normal S1, paradoxically split S2. ABDOMEN: Soft. EXTREMITIES: Trace edema. DIAGNOSTIC DATA: Chest x-ray reveals interval improvement in aeration and decrease in edema. LABORATORY DATA: White count 7.7, hemoglobin 8.2. Potassium 3.5, BUN 49, creatinine 2.2. Troponin yesterday was 0.166. Pro-natriuretic peptide is still over 35,000. IMPRESSION: 1. Acute on chronic systolic and diastolic congestive heart failure. 2. Status post respiratory failure. 3. Severe protein-calorie malnutrition. 4. Paroxysmal cardiac arrhythmias. 5. Cardiac defibrillator. 6. Pericardial effusion with no signs of tamponade. PLAN: 1. Continue diuresis. 2. Followup echocardiogram. 3. Optimize anti-failure regimen. 4. Antimicrobials. 5. Respiratory hygiene. 6. Continue DVT prophylaxis. Judd Longoria M.D. DR: Jhon JOB#: [id number] CC:
[2017-12-24 07:01] LABS: BASOPHILS % (AUTO) 0.9 % (0.0-2.0); HEMATOCRIT 25.4 % (37.0-47.0); LYMPHOCYTES % (AUTO) 10.8 % (20.0-45.0); MEAN CORPUSCULAR VOLUME 88 FL (80-99); MONOCYTES % (AUTO) 12.3 % (1.0-10.0); PLATELET COUNT 132 K/UL (150-450); RED BLOOD COUNT 2.89 M/UL (4.20-5.40); RED CELL DISTRIBUTION WIDTH 15.1 % (11.6-14.8); WHITE BLOOD COUNT 6.7 K/UL (4.8-10.8)
[2017-12-24 07:21] LABS: ALANINE AMINOTRANSFERASE 14 U/L (12-78); ALBUMIN/GLOBULIN RATIO 0.5 (1.0-2.7); ALKALINE PHOSPHATASE 55 U/L (46-116); ANION GAP 7 mmol/L (5-15); ASPARTATE AMINO TRANSFERASE 11 U/L (15-37); BILIRUBIN,TOTAL 0.4 MG/DL (0.2-1.0); BLOOD UREA NITROGEN 52 mg/dL (7-18); CALCIUM 8.5 MG/DL (8.5-10.1); CARBON DIOXIDE 30 MMOL/L (21-32); CHLORIDE 108 MMOL/L (98-107); CHOLESTEROL 97 MG/DL (< 200); CREATININE 1.9 MG/DL (0.55-1.30); HDL CHOLESTEROL 40 MG/DL (40-60); POTASSIUM 3.4 MMOL/L (3.5-5.1); SODIUM 145 MMOL/L (136-145); TRIGLYCERIDES 70 MG/DL (30-150)
[2017-12-24] MEDS: Aspirin Baby 81mg NG SCH (08:30)
[2017-12-24] MEDS: Carvedilol 12.5mg tab ORAL SCH ×2 (08:33→20:50)
[2017-12-24] MEDS: Spironolactone 25mg tab ORAL SCH (08:33)
[2017-12-24] MEDS: Lisinopril 20mg tab ORAL SCH ×2 (08:34→17:13)
[2017-12-24] MEDS: HydrALAZINE 25mg tab ORAL PRN (14:34)
[2017-12-24] MEDS: HydrALAZINE 50mg tab ORAL SCH ×2 (17:14→23:39)
--- NOTE | 2017-12-24 17:16 | Pulmonology Progress Note ---
Assessment/Plan Assessment/Plan 1. Acute respiratory failure. 2. Cardiogenic shock. 3. Pericardial effusion. 4. Acute on chronic respiratory acidosis. 5. Acute on chronic systolic and diastolic congestive heart failure. 6. Severe protein-calorie malnutrition. 7. Healthcare-acquired pneumonia. 8. Anemia. 9. Ischemic heart disease with history of myocardial infarction and right coronary occlusion. 10. Hypertensive cardiomyopathy. tolerated extubation anxiety poor PO BNP >35k cont lasix BP high, added hydralazine Subjective Respiratory: Denies: shortness of breath Psychiatric: Reports: anxiety Allergies: Coded Allergies: FD AND C BLUE NO.1 (Verified Allergy, Unknown, DIFFICULTY BREATHISNG, 12/22) HYDROMORPHONE (Verified Allergy, Unknown, RESTLESS, DISORIENTED, FLUSHED, 12/22/17) IODINE AND IODIDE CONTAINING PRODUC (Verified Allergy, Unknown, 12/22/17) IV CONTRAST MORPHINE (Verified Allergy, Unknown, ANAPHYLAXIS, 12/22/17) NITROGLYCERIN (Verified Allergy, Unknown, DIFFICULTY BREATHING, 12/22/17) Uncoded Allergies: DYE (FOOD COLORING) (Allergy, Unknown, DIFFICULTY BREATHING, 12/22/17) Objective Last 24 Hour Vital Signs Date Time Temp Pulse Resp B/P (MAP) Pulse Ox O2 Delivery O2 Flow Rate FiO2 12/24/17 17:00 187 25 187/49 100 Nasal Cannula 2.0 12/24/17 16:00 74 12/24/17 16:00 99.0 71 25 184/49 100 Nasal Cannula 2.0 99.0 12/24/17 15:00 71 25 189/46 100 Nasal Cannula 2.0 12/24/17 14:34 182/49 12/24/17 14:00 69 26 140/31 100 Nasal Cannula 2.0 12/24/17 13:00 70 26 177/43 100 Nasal Cannula 2.0 12/24/17 12:52 76 19 100 Nasal Cannula 1.0 24 12/24/17 12:39 76 19 98 Nasal Cannula 2.0 28 12/24/17 12:00 68 12/24/17 12:00 73 23 154/43 95 Nasal Cannula 2.0 12/24/17 11:00 68 23 128/35 95 Nasal Cannula 2.0 12/24/17 11:00 68 23 147/40 95 Nasal Cannula 2.0 12/24/17 10:00 65 23 128/35 96 Nasal Cannula 2.0 12/24/17 09:00 74 23 147/39 97 Nasal Cannula 2.0 12/24/17 08:34 164/53 12/24/17 08:33 77 164/53 12/24/17 08:02 72 19 99 Nasal Cannula 2.0 28 12/24/17 08:00 78 23 166/47 97 Nasal Cannula 2.0 12/24/17 08:00 71 12/24/17 07:49 70 19 97 Nasal Cannula 2.0 28 12/24/17 07:49 Nasal Cannula 2.0 28 12/24/17 07:48 97 Nasal Cannula 2.0 28 12/24/17 07:00 68 22 156/45 97 Nasal Cannula 2.0 12/24/17 06:00 66 22 121/50 97 Nasal Cannula 2.0 12/24/17 05:00 67 22 130/50 97 Nasal Cannula 2.0 12/24/17 04:00 98.0 68 22 125/50 97 Nasal Cannula 2.0 98.0 12/24/17 04:00 66 12/24/17 03:00 67 22 138/58 97 Nasal Cannula 2.0 12/24/17 02:00 72 22 129/48 97 Nasal Cannula 2.0 12/24/17 01:18 74 19 99 Nasal Cannula 2.0 28 12/24/17 01:08 79 19 95 Nasal Cannula 2.0 28 12/24/17 01:00 75 22 147/37 97 Nasal Cannula 2.0 12/24/17 00:00 71 12/24/17 00:00 98.4 74 21 148/40 97 Nasal Cannula 2.0 98.4 12/23/17 23:00 70 22 148/40 98 Nasal Cannula 2.0 12/23/17 22:00 69 24 148/50 98 Nasal Cannula 2.0 12/23/17 21:12 68 145/47 12/23/17 21:00 73 24 152/45 98 Nasal Cannula 2.0 12/23/17 20:00 68 23 100 Nasal Cannula 2.0 28 12/23/17 20:00 98.0 71 24 146/89 98 Nasal Cannula 2.0 98.0 12/23/17 20:00 74 12/23/17 19:50 99 Nasal Cannula 2.0 28 12/23/17 19:50 Nasal Cannula 2.0 28 12/23/17 19:50 76 22 99 Nasal Cannula 2.0 28 12/23/17 19:00 70 22 148/44 99 Nasal Cannula 3.0 12/23/17 18:00 69 21 147/61 99 Nasal Cannula 3.0 12/23/17 17:37 139/33 Intake and Output 12/23/17 12/24/17 19:00 07:00 Intake Total 540 ml 527.4 ml Output Total 1525 ml 1241 ml Balance -985 ml -713.6 ml Intake Oral 400 ml 160 ml IV Total 367.4 ml Tube Feeding 100 ml Other 40 ml Output Urine Total 1525 ml 1240 ml Stool Total 1 ml # Bowel Movements 1 General Appearance: no acute distress Respiratory/Chest: lungs clear Cardiovascular: normal rate Microbiology Date/Time Source Procedure Growth Status 12/22/17 04:45 Sputum Gram Stain - Final Complete 12/22/17 04:45 Sputum Sputum Culture - Final NORMAL UPPER RESPIRATORY NIMESH PRESENT Complete 12/21/17 19:30 Nasal Nares MRSA Culture - Final NO METHICILLIN RESISTANT STAPH AUREUS... Complete 12/22/17 14:20 Rectum VRE Culture - Final NO VANCOMYCIN RESISTANT ENTEROCOCCUS ... Complete Laboratory Tests 12/24/17 05:00: White Blood Count 6.7, Red Blood Count 2.89L, Hemoglobin 8.0L, Hematocrit 25.4L , Mean Corpuscular Volume 88, Mean Corpuscular Hemoglobin 27.6, Mean Corpuscular Hemoglobin Concent 31.4L, Red Cell Distribution Width 15.1H, Platelet Count 132L, Mean Platelet Volume 7.0, Neutrophils (%) (Auto) 71.0, Lymphocytes (%) (Auto) 10.8L, Monocytes (%) (Auto) 12.3H, Eosinophils (%) (Auto ) 5.0H, Basophils (%) (Auto) 0.9, Sodium Level 145, Potassium Level 3.4L, Chloride Level 108H, Carbon Dioxide Level 30, Anion Gap 7, Blood Urea Nitrogen 52H, Creatinine 1.9H, Estimat Glomerular Filtration Rate , Glucose Level 92, Calcium Level 8.5, Total Bilirubin 0.4, Aspartate Amino Transf (AST/SGOT) 11L, Alanine Aminotransferase (ALT/SGPT) 14, Alkaline Phosphatase 55, Pro-B-Type Natriuretic Peptide > 90698M, Total Protein 6.0L, Albumin 2.0L, Globulin 4.0, Albumin/Globulin Ratio 0.5L, Triglycerides Level 70, Cholesterol Level 97, LDL Cholesterol 55, HDL Cholesterol 40, Cholesterol/HDL Ratio 2.4L, Thyroid Stimulating Hormone (TSH) 0.036L Current Medications Medications (Trade) Dose Ordered Sig/Leonarda Route PRN Reason Start Time Stop Time Status Last Admin Dose Admin Acetaminophen (Tylenol) 650 mg Q4H PRN ORAL Mild Pain (Pain Scale 1-3) 12/21/17 19:30 01/20/18 19:29 Albuterol/ Ipratropium (Albuterol/ Ipratropium) 3 ml Q6HRT HHN 12/22/17 01:00 12/27/17 00:59 12/24/17 12:39 Aspirin (ASA) 81 mg DAILY NG 12/22/17 09:00 01/21/18 08:59 12/24/17 08:30 Carvedilol (Coreg) 12.5 mg EVERY 12 HOURS ORAL 12/22/17 21:00 01/21/18 20:59 12/24/17 08:33 Cefepime HCl 2 gm/ Dextrose 110 ml @ 220 mls/hr Q24H IV 12/21/17 21:00 12/28/17 23:59 12/23/17 21:12 Chlorhexidine Gluconate (Kelsi-Hex 2%) 1 applic DAILY@2000 TOPIC 12/22/17 20:00 01/21/18 19:59 12/23/17 20:08 Dextrose (Dextrose 50%) 25 ml STAT PRN IV Hypoglycemia 12/21/17 19:30 01/20/18 19:29 Dextrose (Dextrose 50%) 50 ml STAT PRN IV Hypoglycemia 12/21/17 19:30 01/20/18 19:29 Enoxaparin Sodium (Lovenox) 30 mg QHS SUBQ 12/21/17 21:00 01/20/18 20:59 12/23/17 21:15 Furosemide (Lasix) 40 mg EVERY 12 HOURS IV 12/22/17 09:30 01/21/18 09:29 12/24/17 08:31 Hydralazine HCl (Apresoline) 25 mg Q4HR PRN ORAL SBP above 150 12/21/17 23:30 01/20/18 23:29 12/24/17 14:34 Hydralazine HCl (Apresoline) 50 mg Q6HR ORAL 12/24/17 18:00 01/23/18 17:59 Lansoprazole (Prevacid) 30 mg DAILY NG 12/23/17 09:30 01/22/18 09:29 12/24/17 08:30 Levofloxacin 100 ml @ 100 mls/hr Q48H IVPB 12/23/17 21:30 12/30/17 23:59 12/23/17 21:13 Lisinopril (Prinivil) 20 mg BID ORAL 12/23/17 09:00 01/22/18 08:59 12/24/17 08:34 Lorazepam (Ativan 2mg/ml 1ml) 1 mg Q6H PRN IV For Anxiety 12/24/17 02:15 12/31/17 02:14 12/24/17 08:45 Magnesium Hydroxide (Mom) 30 ml DAILYPRN PRN ORAL Constipation 12/23/17 22:45 01/22/18 22:44 12/23/17 23:02 Spironolactone (Aldactone) 25 mg DAILY ORAL 12/24/17 09:00 01/23/18 08:59 12/24/17 08:33 Vancomycin HCl (Rx Monitoring Vancomycin) 1 ea DAILY PRN MISC RX TO DOSE 12/21/17 20:00 01/20/18 19:59 Vancomycin HCl 1 gm/Dextrose 275 ml @ 183.708 mls/hr Q48H IVPB 12/23/17 18:00 12/28/17 17:59 12/23/17 18:24 Zolpidem Tartrate (Ambien) 5 mg HSPRN PRN ORAL Insomnia 12/22/17 18:30 12/29/17 18:29 12/23/17 19:47 Nolan Murray MD Dec 24, 2017 17:16
[2017-12-24] MEDS: Dyna-Hex 2% Top Sol 2oz TOPIC SCH (20:09)
[2017-12-24] MEDS: Cefepime HCl 2 GM in D5W 110 ML IV SCH (20:58)
[2017-12-24] MEDS: Enoxaparin 30mg Inj SUBQ SCH (21:12)
[2017-12-25] VITALS (13 sets, daily range): BP systolic 140–185; BP diastolic 35–64
[2017-12-25] MEDS: Albuterol/Ipratropium 3ml neb HHN SCH ×4 (00:21→20:15)
[2017-12-25] MEDS: LORazepam Inj 2mg/ml 1ml IV PRN ×4 (01:46→23:56)
[2017-12-25] MEDS: HydrALAZINE 50mg tab ORAL SCH ×3 (05:31→18:25)
--- NOTE | 2017-12-25 07:15 | Progress Note ---
DATE: 12/24/2017 CARDIOLOGY PROGRESS NOTE SUBJECTIVE: The patient is awake, alert. No distress post extubation. Blood pressure parameters continue to increase. She remains on diuretic therapy with good output. OBJECTIVE: VITAL SIGNS: Blood pressure 187/49, pulse 87, respiratory rate 25, afebrile, T-max 99. LUNGS: Bilateral rales. HEART: Regular rhythm and rate. Normal S1, S2. A 1/6 systolic murmur at apex. ABDOMEN: Soft. EXTREMITIES: A 1+ edema. LABORATORY DATA: Potassium 3.4, BUN 52, creatinine 1.9. Pro-natriuretic peptide over 35,000. Albumin 2. White count 6.7, hemoglobin 8. IMPRESSION: 1. Cardiogenic shock. 2. Hypertensive heart disease. 3. Malignant blood pressure. 4. Hypertensive urgency. 5. Anemia. 6. Acute myocardial ischemia. 7. Hypokalemia. 8. Severe protein-calorie malnutrition. 9. Acute on chronic kidney injury. 10. Pericardial effusion. PLAN: 1. Continue diuresis. 2. Advancing antihypertensive. 3. Recheck echocardiogram. 4. Respiratory hygiene. Judd Longoria M.D. DR: Jhon JOB#: [id number] CC:
[2017-12-25] MEDS: Aspirin Baby 81mg NG SCH (08:56)
[2017-12-25] MEDS: Lisinopril 20mg tab ORAL SCH ×2 (08:58→18:25)
[2017-12-25] MEDS ORDERED: Carvedilol 25mg Tab ORAL SCH (09:00)
[2017-12-25] MEDS: Spironolactone 25mg tab ORAL SCH (09:07)
[2017-12-25 12:37] LABS: BASOPHILS % (AUTO) 0.9 % (0.0-2.0); EOSINOPHILS % (AUTO) 4.7 % (0.0-3.0); HEMATOCRIT 25.2 % (37.0-47.0); LYMPHOCYTES % (AUTO) 8.5 % (20.0-45.0); MEAN CORPUSCULAR VOLUME 87 FL (80-99); MONOCYTES % (AUTO) 11.5 % (1.0-10.0); NEUTROPHILS % (AUTO) 74.4 % (45.0-75.0); PLATELET COUNT 145 K/UL (150-450); RED BLOOD COUNT 2.88 M/UL (4.20-5.40); RED CELL DISTRIBUTION WIDTH 15.1 % (11.6-14.8); WHITE BLOOD COUNT 6.8 K/UL (4.8-10.8)
[2017-12-25 13:32] LABS: ALANINE AMINOTRANSFERASE 13 U/L (12-78); ALBUMIN/GLOBULIN RATIO 0.5 (1.0-2.7); ALKALINE PHOSPHATASE 54 U/L (46-116); ANION GAP 6 mmol/L (5-15); ASPARTATE AMINO TRANSFERASE 11 U/L (15-37); BILIRUBIN,TOTAL 0.3 MG/DL (0.2-1.0); BLOOD UREA NITROGEN 48 mg/dL (7-18); CALCIUM 8.4 MG/DL (8.5-10.1); CARBON DIOXIDE 32 MMOL/L (21-32); CHLORIDE 106 MMOL/L (98-107); CREATININE 1.9 MG/DL (0.55-1.30); POTASSIUM 3.7 MMOL/L (3.5-5.1); SODIUM 144 MMOL/L (136-145)
--- NOTE | 2017-12-25 13:49 | Pulmonology Progress Note ---
Assessment/Plan Assessment/Plan 1. Acute respiratory failure, resolved 2. Cardiogenic shock, resolved 3. Pericardial effusion. 4. Acute on chronic respiratory acidosis. 5. Acute on chronic systolic and diastolic congestive heart failure. 6. Severe protein-calorie malnutrition. 7. Healthcare-acquired pneumonia. 8. Anemia. 9. Ischemic heart disease with history of myocardial infarction and right coronary occlusion. 10. Hypertensive cardiomyopathy. repeat echo in progress anxiety is better BNP >35k cont lasix BP better Subjective Constitutional: Denies: fever Respiratory: Denies: shortness of breath Psychiatric: Reports: anxiety - better Allergies: Coded Allergies: FD AND C BLUE NO.1 (Verified Allergy, Unknown, DIFFICULTY BREATHISNG, 12/22) HYDROMORPHONE (Verified Allergy, Unknown, RESTLESS, DISORIENTED, FLUSHED, 12/22/17) IODINE AND IODIDE CONTAINING PRODUC (Verified Allergy, Unknown, 12/22/17) IV CONTRAST MORPHINE (Verified Allergy, Unknown, ANAPHYLAXIS, 12/22/17) NITROGLYCERIN (Verified Allergy, Unknown, DIFFICULTY BREATHING, 12/22/17) Uncoded Allergies: DYE (FOOD COLORING) (Allergy, Unknown, DIFFICULTY BREATHING, 12/22/17) Objective Last 24 Hour Vital Signs Date Time Temp Pulse Resp B/P (MAP) Pulse Ox O2 Delivery O2 Flow Rate FiO2 12/25/17 13:25 73 18 100 Nasal Cannula 2.0 12/25/17 13:16 75 18 98 Nasal Cannula 2.0 28 12/25/17 12:10 146/35 12/25/17 09:07 72 146/35 12/25/17 09:00 98.1 77 22 158/50 100 Nasal Cannula 2.0 98.1 12/25/17 08:58 146/35 12/25/17 08:57 72 146/35 12/25/17 08:00 98.1 77 22 158/50 100 Nasal Cannula 2.0 98.1 12/25/17 08:00 70 12/25/17 07:50 72 18 100 Nasal Cannula 2.0 28 12/25/17 07:40 Nasal Cannula 2.0 28 12/25/17 07:40 80 21 98 Nasal Cannula 2.0 28 12/25/17 07:40 98 Nasal Cannula 2.0 28 12/25/17 07:00 66 22 146/35 100 Nasal Cannula 2.0 12/25/17 06:00 61 22 161/35 100 Nasal Cannula 2.0 12/25/17 05:31 149/38 12/25/17 05:00 71 19 155/43 100 Nasal Cannula 2.0 12/25/17 04:00 97.9 71 19 166/40 100 Nasal Cannula 2.0 97.9 12/25/17 04:00 65 12/25/17 03:00 75 19 159/44 99 Nasal Cannula 2.0 12/25/17 02:00 75 19 185/48 98 Nasal Cannula 2.0 12/25/17 01:00 70 19 158/44 98 Nasal Cannula 2.0 12/25/17 00:35 65 22 100 Nasal Cannula 2.0 28 12/25/17 00:21 71 26 98 Nasal Cannula 2.0 28 12/25/17 00:00 98.4 67 19 172/45 98 Nasal Cannula 2.0 98.4 12/24/17 23:39 168/47 12/24/17 23:00 68 22 168/47 96 Nasal Cannula 2.0 12/24/17 22:00 62 22 147/38 100 Nasal Cannula 2.0 12/24/17 21:00 98.6 73 22 179/44 100 Nasal Cannula 2.0 98.6 12/24/17 20:50 79 178/40 12/24/17 20:00 98.6 74 22 191/55 100 Nasal Cannula 2.0 98.6 12/24/17 20:00 77 12/24/17 19:46 99.0 12/24/17 19:30 86 20 100 Nasal Cannula 2.0 28 12/24/17 19:21 Nasal Cannula 2.0 28 12/24/17 19:21 98 Nasal Cannula 2.0 28 12/24/17 19:21 85 21 98 Nasal Cannula 2.0 28 12/24/17 19:00 51 22 180/42 100 Nasal Cannula 2.0 12/24/17 18:00 87 22 168/44 100 Nasal Cannula 2.0 12/24/17 17:14 193/53 12/24/17 17:13 193/53 12/24/17 17:00 74 25 192/46 100 Nasal Cannula 2.0 12/24/17 16:00 74 12/24/17 16:00 99.0 71 25 184/49 100 Nasal Cannula 2.0 99.0 12/24/17 15:00 71 25 189/46 100 Nasal Cannula 2.0 12/24/17 14:34 182/49 12/24/17 14:00 69 26 140/31 100 Nasal Cannula 2.0 Intake and Output 12/24/17 12/25/17 19:00 07:00 Intake Total 500 ml 210 ml Output Total 1335 ml 780 ml Balance -835 ml -570 ml Intake Oral 500 ml 100 ml IV Total 110 ml Output Urine Total 1335 ml 780 ml # Bowel Movements 2 General Appearance: no acute distress Respiratory/Chest: lungs clear Cardiovascular: normal rate Abdomen: soft, non tender Microbiology Date/Time Source Procedure Growth Status 12/22/17 14:20 Rectum VRE Culture - Final NO VANCOMYCIN RESISTANT ENTEROCOCCUS ... Complete Laboratory Tests 12/24/17 19:00: Stool Occult Blood Positive 12/25/17 12:05: White Blood Count 6.8, Red Blood Count 2.88L, Hemoglobin 8.0L, Hematocrit 25.2L , Mean Corpuscular Volume 87, Mean Corpuscular Hemoglobin 27.6, Mean Corpuscular Hemoglobin Concent 31.6L, Red Cell Distribution Width 15.1H, Platelet Count 145L, Mean Platelet Volume 7.7, Neutrophils (%) (Auto) 74.4, Lymphocytes (%) (Auto) 8.5L, Monocytes (%) (Auto) 11.5H, Eosinophils (%) (Auto) 4.7H, Basophils (%) (Auto) 0.9, Sodium Level 144, Potassium Level 3.7, Chloride Level 106, Carbon Dioxide Level 32, Anion Gap 6, Blood Urea Nitrogen 48H, Creatinine 1.9H, Estimat Glomerular Filtration Rate , Glucose Level 107H, Calcium Level 8.4L, Total Bilirubin 0.3, Aspartate Amino Transf (AST/SGOT) 11L, Alanine Aminotransferase (ALT/SGPT) 13, Alkaline Phosphatase 54, Pro-B-Type Natriuretic Peptide > 64030I, Total Protein 5.8L, Albumin 2.0L, Globulin 3.8, Albumin/Globulin Ratio 0.5L Current Medications Medications (Trade) Dose Ordered Sig/Leonarda Route PRN Reason Start Time Stop Time Status Last Admin Dose Admin Acetaminophen (Tylenol) 650 mg Q4H PRN ORAL Mild Pain (Pain Scale 1-3) 12/21/17 19:30 01/20/18 19:29 12/24/17 18:47 Albuterol/ Ipratropium (Albuterol/ Ipratropium) 3 ml Q6HRT HHN 12/22/17 01:00 12/27/17 00:59 12/25/17 13:15 Amlodipine Besylate (Norvasc) 5 mg DAILY ORAL 12/25/17 09:00 01/24/18 08:59 12/25/17 09:07 Aspirin (ASA) 81 mg DAILY NG 12/22/17 09:00 01/21/18 08:59 12/25/17 08:56 Carvedilol (Coreg) 25 mg EVERY 12 HOURS ORAL 12/25/17 09:00 01/24/18 08:59 12/25/17 08:57 Cefepime HCl 2 gm/ Dextrose 110 ml @ 220 mls/hr Q24H IV 12/21/17 21:00 12/28/17 23:59 12/24/17 20:58 Chlorhexidine Gluconate (Kelsi-Hex 2%) 1 applic DAILY@2000 TOPIC 12/22/17 20:00 01/21/18 19:59 12/24/17 20:09 Dextrose (Dextrose 50%) 25 ml STAT PRN IV Hypoglycemia 12/21/17 19:30 01/20/18 19:29 Dextrose (Dextrose 50%) 50 ml STAT PRN IV Hypoglycemia 12/21/17 19:30 01/20/18 19:29 Enoxaparin Sodium (Lovenox) 30 mg QHS SUBQ 12/21/17 21:00 01/20/18 20:59 12/24/17 21:12 Furosemide (Lasix) 40 mg EVERY 12 HOURS IV 12/22/17 09:30 01/21/18 09:29 12/25/17 08:56 Hydralazine HCl (Apresoline) 25 mg Q4HR PRN ORAL SBP above 150 12/21/17 23:30 01/20/18 23:29 12/24/17 14:34 Hydralazine HCl (Apresoline) 50 mg Q6HR ORAL 12/24/17 18:00 01/23/18 17:59 12/25/17 12:10 Lansoprazole (Prevacid) 30 mg DAILY NG 12/23/17 09:30 01/22/18 09:29 12/25/17 08:57 Levofloxacin 100 ml @ 100 mls/hr Q48H IVPB 12/23/17 21:30 12/30/17 23:59 12/23/17 21:13 Lisinopril (Prinivil) 20 mg BID ORAL 12/23/17 09:00 01/22/18 08:59 12/25/17 08:58 Lorazepam (Ativan 2mg/ml 1ml) 1 mg Q6H PRN IV For Anxiety 12/24/17 02:15 12/31/17 02:14 12/25/17 08:59 Magnesium Hydroxide (Mom) 30 ml DAILYPRN PRN ORAL Constipation 12/23/17 22:45 01/22/18 22:44 12/23/17 23:02 Spironolactone (Aldactone) 25 mg DAILY ORAL 12/24/17 09:00 01/23/18 08:59 12/25/17 09:07 Vancomycin HCl (Rx Monitoring Vancomycin) 1 ea DAILY PRN MISC RX TO DOSE 12/21/17 20:00 01/20/18 19:59 Vancomycin HCl 1 gm/Dextrose 275 ml @ 183.708 mls/hr Q48H IVPB 12/23/17 18:00 12/28/17 17:59 12/23/17 18:24 Zolpidem Tartrate (Ambien) 5 mg HSPRN PRN ORAL Insomnia 12/22/17 18:30 12/29/17 18:29 12/23/17 19:47 Nolan Murray MD Dec 25, 2017 13:49
[2017-12-25] MEDS ORDERED: HydrALAZINE 25mg tab ORAL PRN (14:14)
[2017-12-25] MEDS ORDERED: Milk of Magnesia 30ml Ud ORAL PRN (14:15)
[2017-12-25] MEDS ORDERED: Rx Monitoring Vancomycin MISC PRN (14:15)
[2017-12-25] MEDS ORDERED: Vancomycin 1 GM in D5W 275 ML IVPB SCH (18:00)
[2017-12-25] MEDS: Cefepime HCl 2 GM in D5W 110 ML IV SCH (20:20)
[2017-12-25] MEDS: Carvedilol 25mg Tab ORAL SCH (20:21)
[2017-12-25] MEDS: Enoxaparin 30mg Inj SUBQ SCH (20:24)
[2017-12-25] MEDS: Dyna-Hex 2% Top Sol 2oz TOPIC SCH (20:25)
[2017-12-25] MEDS ORDERED: Zolpidem 5mg tab ORAL PRN (21:00)
[2017-12-25] MEDS ORDERED: Vancomycin 1250mg/D5W 250ml IVPB SCH (21:00)
[2017-12-26] VITALS: BP 156/65
[2017-12-26] MEDS: HydrALAZINE 50mg tab ORAL SCH ×4 (00:47→17:27)
[2017-12-26] MEDS: Albuterol/Ipratropium 3ml neb HHN SCH ×4 (01:20→20:14)
[2017-12-26 04:00] VITALS: BP 145/69
--- NOTE | 2017-12-26 04:15 | Progress Note ---
DATE: 12/25/2017 CARDIOLOGY PROGRESS NOTE SUBJECTIVE: The patient is less short of breath. She is in no respiratory distress. PHYSICAL EXAMINATION: VITAL SIGNS: Blood pressure 154/68, pulse 72, and respiratory rate 18. HEENT: Less jugular venous distention. No Kussmaul sign. LUNGS: Few rales. CARDIAC: Regular rhythm and rate. Normal S1, S2 with no rub. ABDOMEN: Soft. EXTREMITIES: Trace edema. LABORATORY AND DIAGNOSTIC DATA: Sodium 144, potassium 3.7, bicarbonate 32, BUN 48, and creatinine 1.9. Pro-natriuretic peptide over 35,000. White count 6.8. Hemoglobin 8. IMPRESSION: 1. Cardiogenic shock, resolved. 2. Acute on chronic systolic and diastolic congestive heart failure, improving. 3. Ischemic cardiomyopathy. 4. Cardiac defibrillator. 5. Pericardial effusion. 6. Acute on chronic respiratory acidosis. 7. Hypertensive heart disease with labile blood pressure. PLAN: 1. Follow up echocardiogram regarding pericardial effusion. 2. Continue diuresis and up titration of antihypertensives as well as anti-failure regimen. 3. Cardiac monitoring. Judd Longoria M.D. DR: LAUREN JOB#: [id number] CC:
[2017-12-26 04:42] LABS: BASOPHILS % (AUTO) 0.8 % (0.0-2.0); EOSINOPHILS % (AUTO) 4.4 % (0.0-3.0); HEMATOCRIT 25.2 % (37.0-47.0); HEMOGLOBIN 8.3 G/DL (12.0-16.0); LYMPHOCYTES % (AUTO) 8.1 % (20.0-45.0); MEAN CORPUSCULAR VOLUME 86 FL (80-99); MONOCYTES % (AUTO) 11.5 % (1.0-10.0); NEUTROPHILS % (AUTO) 75.2 % (45.0-75.0); PLATELET COUNT 141 K/UL (150-450); RED BLOOD COUNT 2.92 M/UL (4.20-5.40); RED CELL DISTRIBUTION WIDTH 15.2 % (11.6-14.8); WHITE BLOOD COUNT 8.5 K/UL (4.8-10.8)
[2017-12-26 04:58] LABS: ALANINE AMINOTRANSFERASE 11 U/L (12-78); ALBUMIN 2.1 G/DL (3.4-5.0); ALBUMIN/GLOBULIN RATIO 0.5 (1.0-2.7); ALKALINE PHOSPHATASE 54 U/L (46-116); ANION GAP 8 mmol/L (5-15); ASPARTATE AMINO TRANSFERASE 10 U/L (15-37); BILIRUBIN,TOTAL 0.4 MG/DL (0.2-1.0); BLOOD UREA NITROGEN 50 mg/dL (7-18); CALCIUM 8.3 MG/DL (8.5-10.1); CARBON DIOXIDE 29 MMOL/L (21-32); CHLORIDE 105 MMOL/L (98-107); CREATININE 1.9 MG/DL (0.55-1.30); POTASSIUM 3.8 MMOL/L (3.5-5.1); SODIUM 142 MMOL/L (136-145)
[2017-12-26] MEDS: LORazepam Inj 2mg/ml 1ml IV PRN ×2 (06:02→12:24)
[2017-12-26 08:00] VITALS: BP 107/69
[2017-12-26] MEDS: Lisinopril 20mg tab ORAL SCH ×2 (08:56→17:26)
[2017-12-26] MEDS: Carvedilol 25mg Tab ORAL SCH ×2 (08:56→20:53)
[2017-12-26] MEDS ORDERED: Aspirin Baby 81mg NG SCH (09:00)
[2017-12-26] MEDS ORDERED: Spironolactone 25mg tab ORAL SCH (09:00)
[2017-12-26 12:00] VITALS: BP 154/56
[2017-12-26 16:00] VITALS: BP 158/48
--- NOTE | 2017-12-26 16:48 | Pulmonology Progress Note ---
Assessment/Plan Assessment/Plan 1. Acute respiratory failure, resolved 2. Cardiogenic shock, resolved 3. Pericardial effusion. 4. Acute on chronic respiratory acidosis. 5. Acute on chronic systolic and diastolic congestive heart failure. 6. Severe protein-calorie malnutrition. 7. Healthcare-acquired pneumonia. 8. Anemia. 9. Ischemic heart disease with history of myocardial infarction and right coronary occlusion. 10. Hypertensive cardiomyopathy. anxiety is better cont lasix and more agressive diuresis as bp and renal function will tolerate BP better dc vanco, no evidence of MRS infection prn nebs check am labs Subjective Constitutional: Reports: no symptoms Respiratory: Reports: no symptoms Cardiovascular: Reports: no symptoms Gastrointestinal/Abdominal: Reports: no symptoms Allergies: Coded Allergies: FD AND C BLUE NO.1 (Verified Allergy, Unknown, DIFFICULTY BREATHISNG, 12/22) HYDROMORPHONE (Verified Allergy, Unknown, RESTLESS, DISORIENTED, FLUSHED, 12/22/17) IODINE AND IODIDE CONTAINING PRODUC (Verified Allergy, Unknown, 12/22/17) IV CONTRAST MORPHINE (Verified Allergy, Unknown, ANAPHYLAXIS, 12/22/17) NITROGLYCERIN (Verified Allergy, Unknown, DIFFICULTY BREATHING, 12/22/17) Uncoded Allergies: DYE (FOOD COLORING) (Allergy, Unknown, DIFFICULTY BREATHING, 12/22/17) Subjective anxious earlier complains of reduced hearing complains of shoulder pain for 40 years no cp nv or bleeding tolerating po n ofever Objective Last 24 Hour Vital Signs Date Time Temp Pulse Resp B/P (MAP) Pulse Ox O2 Delivery O2 Flow Rate FiO2 12/26/17 16:00 72 12/26/17 12:55 75 18 98 Nasal Cannula 2.0 28 12/26/17 12:45 70 18 96 Nasal Cannula 2.0 28 12/26/17 12:24 154/56 12/26/17 12:00 98.2 71 18 154/56 95 Nasal Cannula 2.0 98.2 12/26/17 12:00 74 12/26/17 08:57 70 107/69 12/26/17 08:56 107/69 12/26/17 08:56 70 107/69 12/26/17 08:00 72 12/26/17 08:00 98.9 70 18 107/69 99 Nasal Cannula 2.0 98.9 12/26/17 07:13 76 18 98 Nasal Cannula 2.0 28 4/28/18 07:03 96 Nasal Cannula 2.0 12/26/17 07:03 Nasal Cannula 2.0 12/26/17 07:03 73 21 96 Nasal Cannula 2.0 12/26/17 05:19 148/62 12/26/17 04:00 97.9 75 18 145/69 99 Nasal Cannula 2.0 97.9 12/26/17 04:00 69 12/26/17 01:32 69 18 98 Nasal Cannula 2.0 12/26/17 01:22 66 18 96 Nasal Cannula 2.0 12/26/17 00:47 154/68 12/26/17 00:00 64 12/26/17 00:00 97.6 72 20 156/65 98 Nasal Cannula 2.0 97.6 12/25/17 20:35 71 18 100 Nasal Cannula 2.0 12/25/17 20:21 85 145/87 12/25/17 20:16 66 18 98 Nasal Cannula 2.0 12/25/17 20:15 Nasal Cannula 2.0 12/25/17 20:15 98 Nasal Cannula 2.0 12/25/17 20:00 97.5 72 18 140/55 98 Nasal Cannula 2.0 97.5 12/25/17 20:00 74 12/25/17 18:25 124/56 12/25/17 18:25 124/56 Intake and Output 12/25/17 12/26/17 19:00 07:00 Intake Total 653.2 ml Output Total 700 ml 650 ml Balance -700 ml 3.2 ml IV Total 653.2 ml Output Urine Total 700 ml 650 ml General Appearance: WD/WN Respiratory/Chest: lungs clear, normal breath sounds Cardiovascular: normal rate, regular rhythm Abdomen: soft, non tender, no organomegaly Extremities: no cyanosis Skin: no lesions Neurologic/Psychiatric: no motor/sensory deficits, abnormal gait, alert Lymphatic: no neck adenopathy Laboratory Tests 12/25/17 17:46: Vancomycin Level Trough 10.6 12/26/17 04:25: White Blood Count 8.5, Red Blood Count 2.92L, Hemoglobin 8.3L, Hematocrit 25.2L , Mean Corpuscular Volume 86, Mean Corpuscular Hemoglobin 28.4, Mean Corpuscular Hemoglobin Concent 33.0, Red Cell Distribution Width 15.2H, Platelet Count 141L, Mean Platelet Volume 6.9, Neutrophils (%) (Auto) 75.2H, Lymphocytes (%) (Auto) 8.1L, Monocytes (%) (Auto) 11.5H, Eosinophils (%) (Auto) 4.4H, Basophils (%) (Auto) 0.8, Sodium Level 142, Potassium Level 3.8, Chloride Level 105, Carbon Dioxide Level 29, Anion Gap 8, Blood Urea Nitrogen 50H, Creatinine 1.9H, Estimat Glomerular Filtration Rate , Glucose Level 101, Calcium Level 8.3L, Total Bilirubin 0.4, Aspartate Amino Transf (AST/SGOT) 10L, Alanine Aminotransferase (ALT/SGPT) 11L, Alkaline Phosphatase 54, Pro-B-Type Natriuretic Peptide > 82932I, Total Protein 6.0L, Albumin 2.1L, Globulin 3.9, Albumin/Globulin Ratio 0.5L Current Medications Medications (Trade) Dose Ordered Sig/Leonarda Route PRN Reason Start Time Stop Time Status Last Admin Dose Admin Acetaminophen (Tylenol) 650 mg Q4H PRN ORAL Mild Pain (Pain Scale 1-3) 12/25/17 14:12 01/20/18 14:11 12/25/17 15:33 Albuterol/ Ipratropium (Albuterol/ Ipratropium) 3 ml Q6HRT HHN 12/25/17 19:00 12/27/17 00:59 12/26/17 12:45 Amlodipine Besylate (Norvasc) 5 mg BID ORAL 12/26/17 09:00 01/25/18 08:59 Aspirin (ASA) 81 mg DAILY NG 12/26/17 09:00 01/21/18 08:59 12/26/17 08:56 Carvedilol (Coreg) 25 mg EVERY 12 HOURS ORAL 12/25/17 21:00 01/24/18 08:59 12/26/17 08:56 Cefepime HCl 2 gm/ Dextrose 110 ml @ 220 mls/hr Q24H IV 12/25/17 21:00 12/28/17 23:59 12/25/17 20:20 Chlorhexidine Gluconate (Kelsi-Hex 2%) 1 applic DAILY@2000 TOPIC 12/25/17 20:00 01/21/18 19:59 12/25/17 20:25 Dextrose (Dextrose 50%) 25 ml STAT PRN IV Hypoglycemia 12/25/17 14:13 01/20/18 14:12 Dextrose (Dextrose 50%) 50 ml STAT PRN IV Hypoglycemia 12/25/17 14:13 01/20/18 14:12 Enoxaparin Sodium (Lovenox) 30 mg QHS SUBQ 12/25/17 21:00 01/20/18 20:59 12/25/17 20:24 Furosemide (Lasix) 40 mg EVERY 12 HOURS IV 12/25/17 21:00 01/21/18 09:29 12/26/17 08:56 Hydralazine HCl (Apresoline) 25 mg Q4HR PRN ORAL SBP above 150 12/25/17 14:14 01/20/18 14:13 12/25/17 15:34 Hydralazine HCl (Apresoline) 50 mg Q6HR ORAL 12/25/17 18:00 01/23/18 17:59 12/26/17 12:24 Lansoprazole (Prevacid) 30 mg DAILY NG 12/26/17 09:00 01/22/18 09:29 12/26/17 08:56 Levofloxacin 100 ml @ 100 mls/hr Q48H IVPB 12/25/17 21:30 12/30/17 23:59 12/25/17 21:33 Lisinopril (Prinivil) 20 mg BID ORAL 12/25/17 18:00 01/22/18 08:59 12/26/17 08:56 Lorazepam (Ativan 2mg/ml 1ml) 1 mg Q6H PRN IV For Anxiety 12/25/17 14:14 12/31/17 14:13 12/26/17 12:24 Magnesium Hydroxide (Mom) 30 ml DAILYPRN PRN ORAL Constipation 12/25/17 14:15 01/22/18 14:14 Spironolactone (Aldactone) 25 mg DAILY ORAL 12/26/17 09:00 01/23/18 08:59 12/26/17 08:56 Vancomycin HCl (Rx Monitoring Vancomycin) 1 ea DAILY PRN MISC RX TO DOSE 12/25/17 14:15 01/24/18 14:14 Vancomycin HCl/ Dextrose 250 ml @ 166.667 mls/hr Q24H IVPB 12/25/17 21:00 12/30/17 20:59 12/25/17 22:06 Zolpidem Tartrate (Ambien) 5 mg HSPRN PRN ORAL Insomnia 12/26/17 21:00 12/29/17 20:59 JOEL ULLOA DO Dec 26, 2017 16:48
[2017-12-26 20:00] VITALS: BP 140/50
[2017-12-26] MEDS ORDERED: Tubing IV Secondary IV ONE (20:09)
[2017-12-26] MEDS ORDERED: NS 275ml ONE ×2 (20:09→21:53)
[2017-12-26] MEDS: Dyna-Hex 2% Top Sol 2oz TOPIC SCH (20:48)
[2017-12-26] MEDS: Cefepime HCl 2 GM in D5W 110 ML IV SCH (20:49)
[2017-12-26] MEDS: Enoxaparin 30mg Inj SUBQ SCH (20:51)
[2017-12-26] MEDS ORDERED: Zolpidem 5mg tab ORAL PRN (21:00)
[2017-12-27] VITALS: BP 150/59
[2017-12-27] MEDS: HydrALAZINE 50mg tab ORAL SCH ×4 (00:43→17:08)
[2017-12-27] MEDS ORDERED: HydrALAZINE 25mg tab ORAL PRN (01:00)
[2017-12-27] MEDS: Zolpidem 5mg tab ORAL PRN ×2 (01:01→21:56)
[2017-12-27] MEDS: Albuterol/Ipratropium 3ml neb HHN SCH ×4 (02:06→19:54)
--- NOTE | 2017-12-27 02:15 | Progress Note ---
DATE: 12/26/2017 CARDIOLOGY PROGRESS NOTE SUBJECTIVE: The patient has episodes of anxiety. No chest pain. No shortness of breath. Appetite better. OBJECTIVE: VITAL SIGNS: Blood pressure 107/69 earlier, now 154/56, heart rate 75, respiratory rate 18, and oxygen saturation on 2 liters 98%. LUNGS: Few rales. HEART: Regular rhythm and rate. Normal S1, S2 with a fourth heart sound. ABDOMEN: Soft and nontender. EXTREMITIES: With trace edema. LABORATORY DATA: White count 8.5, hemoglobin 8.3. Potassium 3.8, BUN 50, creatinine 1.9. Albumin 2.1. Pro-natriuretic peptide over 35,000. IMPRESSION: 1. Acute on chronic systolic and diastolic congestive heart failure. 2. Status post cardiogenic shock. 3. Pericardial effusion with no progression and no signs of acute pericardial tamponade. 4. Healthcare-acquired pneumonia. 5. Acute on chronic respiratory acidosis, resolved. 6. Severe protein-calorie malnutrition. 7. Ischemic cardiomyopathy with recent myocardial infarction and right coronary occlusion. 8. Hypertensive cardiomyopathy with labile blood pressure. 9. Acute on chronic renal failure. 10. Cardiac defibrillator with no recent shock. PLAN: 1. Diuresis. 2. Titrate anti-failure and antiarrhythmics. 3. Monitor volume status and cardiorenal parameters. 4. Antimicrobials. 5. DVT prophylaxis. Judd Longoria M.D. DR: Sara JOB#: [id number] CC:
[2017-12-27 04:00] VITALS: BP 142/51
--- NOTE | 2017-12-27 06:08 | Pulmonology Progress Note ---
Assessment/Plan Assessment/Plan 1. Acute respiratory failure, resolved 2. Cardiogenic shock, resolved 3. Pericardial effusion. 4. Acute on chronic respiratory acidosis. 5. Acute on chronic systolic and diastolic congestive heart failure. 6. Severe protein-calorie malnutrition. 7. Healthcare-acquired pneumonia. 8. Anemia. 9. Ischemic heart disease with history of myocardial infarction and right coronary occlusion. 10. Hypertensive cardiomyopathy. anxiety is better cont lasix and more aggressive diuresis as bp and renal function will tolerate BP better abx for now prn nebs check am labs Subjective Constitutional: Reports: no symptoms Respiratory: Reports: no symptoms Cardiovascular: Reports: no symptoms Genitourinary: Reports: no symptoms Neurologic: Reports: no symptoms Allergies: Coded Allergies: FD AND C BLUE NO.1 (Verified Allergy, Unknown, DIFFICULTY BREATHISNG, 12/22) HYDROMORPHONE (Verified Allergy, Unknown, RESTLESS, DISORIENTED, FLUSHED, 12/22/17) IODINE AND IODIDE CONTAINING PRODUC (Verified Allergy, Unknown, 12/22/17) IV CONTRAST MORPHINE (Verified Allergy, Unknown, ANAPHYLAXIS, 12/22/17) NITROGLYCERIN (Verified Allergy, Unknown, DIFFICULTY BREATHING, 12/22/17) Uncoded Allergies: DYE (FOOD COLORING) (Allergy, Unknown, DIFFICULTY BREATHING, 12/22/17) Subjective doign better no new complaints no cp nv or bleeding tolerating po no fever Objective Last 24 Hour Vital Signs Date Time Temp Pulse Resp B/P (MAP) Pulse Ox O2 Delivery O2 Flow Rate FiO2 12/27/17 05:57 142/51 12/27/17 04:00 98.8 67 18 142/51 100 Room Air 98.8 12/27/17 01:39 Nasal Cannula 2.0 12/27/17 01:29 73 18 98 Nasal Cannula 2.0 12/27/17 01:24 76 18 96 Nasal Cannula 2.0 12/27/17 00:43 150/59 12/27/17 00:00 99.1 67 17 150/59 94 Room Air 99.1 12/26/17 20:53 68 140/50 12/26/17 20:00 98.1 67 20 140/50 98 Nasal Cannula 2.0 98.1 12/26/17 19:17 71 18 97 Nasal Cannula 2.0 28 12/26/17 19:08 Nasal Cannula 2.0 28 12/26/18 19:08 81 18 97 Nasal Cannula 2.0 28 12/26/17 19:08 96 Nasal Cannula 2.0 28 12/26/17 17:27 72 158/48 12/26/17 17:27 158/48 12/26/17 17:26 158/48 12/26/17 16:00 98.0 63 20 158/48 98 Nasal Cannula 2.0 98.0 12/26/17 16:00 72 12/26/17 12:55 75 18 98 Nasal Cannula 2.0 28 12/26/17 12:45 70 18 96 Nasal Cannula 2.0 28 12/26/17 12:24 154/56 12/26/17 12:00 98.2 71 18 154/56 95 Nasal Cannula 2.0 98.2 12/26/17 12:00 74 12/26/17 08:57 70 107/69 12/26/17 08:56 107/69 12/26/17 08:56 70 107/69 12/26/17 08:00 72 12/26/17 08:00 98.9 70 18 107/69 99 Nasal Cannula 2.0 98.9 12/26/17 07:13 76 18 98 Nasal Cannula 2.0 12/26/17 07:03 96 Nasal Cannula 2.0 12/26/17 07:03 Nasal Cannula 2.0 12/26/17 07:03 73 21 96 Nasal Cannula 2.0 Intake and Output 12/26/17 12/27/17 19:00 07:00 Intake Total 220 ml 60 ml Output Total 650 ml 150 ml Balance -430 ml -90 ml Intake Oral 220 ml 60 ml Output Urine Total 650 ml 150 ml # Bowel Movements 2 1 General Appearance: WD/WN Respiratory/Chest: lungs clear, normal breath sounds Cardiovascular: normal rate, regular rhythm Abdomen: soft, non tender, no organomegaly Extremities: no cyanosis Skin: no lesions 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, alert, oriented x 3 Current Medications Medications (Trade) Dose Ordered Sig/Leonarda Route PRN Reason Start Time Stop Time Status Last Admin Dose Admin Acetaminophen (Tylenol) 650 mg Q4H PRN ORAL Mild Pain (Pain Scale 1-3) 12/27/17 02:15 01/20/18 14:11 Albuterol/ Ipratropium (Albuterol/ Ipratropium) 3 ml Q6HRT HHN 12/27/17 01:00 12/28/17 00:59 12/27/17 02:06 Amlodipine Besylate (Norvasc) 5 mg BID ORAL 12/27/17 09:00 01/25/18 08:59 Aspirin (ASA) 81 mg DAILY NG 12/27/17 09:00 01/21/18 08:59 Carvedilol (Coreg) 25 mg EVERY 12 HOURS ORAL 12/27/17 09:00 01/24/18 08:59 Cefepime HCl 2 gm/ Dextrose 110 ml @ 220 mls/hr Q24H IV 12/27/17 21:00 12/28/17 23:59 Chlorhexidine Gluconate (Kelsi-Hex 2%) 1 applic DAILY@2000 TOPIC 12/27/17 20:00 01/21/18 19:59 Dextrose (Dextrose 50%) 25 ml STAT PRN IV Hypoglycemia 12/27/17 14:15 01/20/18 14:12 Dextrose (Dextrose 50%) 50 ml STAT PRN IV Hypoglycemia 12/27/17 14:15 01/20/18 14:12 Enoxaparin Sodium (Lovenox) 30 mg QHS SUBQ 12/27/17 21:00 01/20/18 20:59 Furosemide (Lasix) 40 mg EVERY 12 HOURS IV 12/27/17 09:00 01/21/18 09:29 Hydralazine HCl (Apresoline) 25 mg Q4HR PRN ORAL SBP above 150 12/27/17 01:00 01/20/18 14:13 Hydralazine HCl (Apresoline) 50 mg Q6HR ORAL 12/27/17 00:00 01/23/18 17:59 12/27/17 05:57 Lansoprazole (Prevacid) 30 mg DAILY NG 12/27/17 09:00 01/22/18 09:29 Lisinopril (Prinivil) 20 mg BID ORAL 12/27/17 09:00 01/22/18 08:59 Lorazepam (Ativan 2mg/ml 1ml) 1 mg Q6H PRN IV For Anxiety 12/27/17 02:15 12/31/17 14:13 Magnesium Hydroxide (Mom) 30 ml DAILYPRN PRN ORAL Constipation 12/27/17 14:15 01/22/18 14:14 Spironolactone (Aldactone) 25 mg DAILY ORAL 12/27/17 09:00 01/23/18 08:59 Zolpidem Tartrate (Ambien) 5 mg HSPRN PRN ORAL Insomnia 12/27/17 01:00 01/03/18 00:59 12/27/17 01:01 JOEL ULLOA DO Dec 27, 2017 06:08
[2017-12-27 08:00] VITALS: BP 142/56
[2017-12-27 08:27] LABS: HEMATOCRIT 23.2 % (37.0-47.0); HEMOGLOBIN 7.5 G/DL (12.0-16.0); MEAN CORPUSCULAR VOLUME 87 FL (80-99); PLATELET COUNT 131 K/UL (150-450); RED BLOOD COUNT 2.67 M/UL (4.20-5.40); RED CELL DISTRIBUTION WIDTH 14.8 % (11.6-14.8); WHITE BLOOD COUNT 6.5 K/UL (4.8-10.8)
[2017-12-27] MEDS: Aspirin Baby 81mg NG SCH (08:31)
[2017-12-27] MEDS: Carvedilol 25mg Tab ORAL SCH ×2 (08:32→21:44)
[2017-12-27] MEDS: Spironolactone 25mg tab ORAL SCH (08:33)
[2017-12-27] MEDS: LORazepam Inj 2mg/ml 1ml IV PRN ×2 (08:33→14:41)
[2017-12-27] MEDS: Lisinopril 20mg tab ORAL SCH ×2 (08:33→17:10)
[2017-12-27 09:29] LABS: ANION GAP 6 mmol/L (5-15); BLOOD UREA NITROGEN 52 mg/dL (7-18); CALCIUM 8.4 MG/DL (8.5-10.1); CARBON DIOXIDE 31 MMOL/L (21-32); CHLORIDE 104 MMOL/L (98-107); CREATININE 2.1 MG/DL (0.55-1.30); SODIUM 141 MMOL/L (136-145)
[2017-12-27 12:00] VITALS: BP 142/48
[2017-12-27] MEDS ORDERED: Milk of Magnesia 30ml Ud ORAL PRN (14:15)
[2017-12-27 16:00] VITALS: BP 140/60
--- NOTE | 2017-12-27 17:52 | Cardiology Report ---
APPROVED REPORT EKG Measurement Heart [id number] Sinus rhythm with occasional premature ventricular complexes Left axis deviation Left bundle branch block Abnormal ECG
[2017-12-27 20:00] VITALS: BP 146/57
[2017-12-27] MEDS ORDERED: Dyna-Hex 2% Top Sol 2oz TOPIC SCH (20:00)
[2017-12-27] MEDS ORDERED: Cefepime HCl 2 GM in D5W 110 ML IV SCH (21:00)
[2017-12-27] MEDS ORDERED: Zolpidem 5mg tab ORAL PRN (21:00)
[2017-12-27] MEDS ORDERED: Enoxaparin 30mg Inj SUBQ SCH (21:00)
[2017-12-27] MEDS: KETOROLAC 0.4% OPHTHALM SCH (21:41)
[2017-12-28] VITALS: BP 144/56
[2017-12-28] MEDS: HydrALAZINE 50mg tab ORAL SCH ×3 (00:45→12:20)
[2017-12-28] MEDS: LORazepam Inj 2mg/ml 1ml IV PRN ×2 (00:58→10:33)
[2017-12-28 04:10] VITALS: BP 142/50
[2017-12-28 07:18] LABS: BASOPHILS % (AUTO) 1.2 % (0.0-2.0); EOSINOPHILS % (AUTO) 5.7 % (0.0-3.0); HEMATOCRIT 24.5 % (37.0-47.0); LYMPHOCYTES % (AUTO) 11.2 % (20.0-45.0); MEAN CORPUSCULAR VOLUME 87 FL (80-99); MONOCYTES % (AUTO) 12.5 % (1.0-10.0); NEUTROPHILS % (AUTO) 69.3 % (45.0-75.0); PLATELET COUNT 146 K/UL (150-450); RED BLOOD COUNT 2.81 M/UL (4.20-5.40); RED CELL DISTRIBUTION WIDTH 14.9 % (11.6-14.8); WHITE BLOOD COUNT 6.5 K/UL (4.8-10.8)
[2017-12-28 07:27] LABS: ALANINE AMINOTRANSFERASE 11 U/L (12-78); ALBUMIN/GLOBULIN RATIO 0.5 (1.0-2.7); ALKALINE PHOSPHATASE 51 U/L (46-116); ANION GAP 7 mmol/L (5-15); ASPARTATE AMINO TRANSFERASE 11 U/L (15-37); BILIRUBIN,TOTAL 0.3 MG/DL (0.2-1.0); BLOOD UREA NITROGEN 58 mg/dL (7-18); CALCIUM 8.5 MG/DL (8.5-10.1); CARBON DIOXIDE 29 MMOL/L (21-32); CHLORIDE 104 MMOL/L (98-107); CREATININE 2.1 MG/DL (0.55-1.30); SODIUM 140 MMOL/L (136-145)
--- NOTE | 2017-12-28 07:30 | Progress Note ---
DATE: 12/27/2017 CARDIOLOGY PROGRESS NOTE SUBJECTIVE: The patient is doing better. No complaints. Tolerating oral intake. No shortness of breath or chest pain. No defibrillator shock. Monitored ____ rhythm is sinus. OBJECTIVE: VITAL SIGNS: Blood pressure 142/51, pulse 67, respirations 18, and afebrile. LUNGS: With good breath sounds. No wheezing or rales. CARDIAC: Regular rhythm and rate. Normal S1, S2 with no rub. ABDOMEN: Soft. EXTREMITIES: With trace edema. IMPRESSION: 1. Cardiogenic shock, resolved. 2. Acute on chronic systolic and diastolic congestive heart failure, improved. 3. Pericardial effusion with no signs of pericardial tamponade, stable. 4. Acute respiratory failure, resolved. 5. Acute on chronic respiratory acidosis, recovered. 6. Ischemic cardiomyopathy with chronic right coronary occlusion noted and recent myocardial infarction with now stable angina. 7. Hypertensive heart disease with improved blood pressure control. 8. Anemia. 9. Acute on chronic kidney disease, stable. PLAN: 1. Recheck labs. 2. May need transfusion. 3. Continue cardiovascular regimen. 4. Transition from IV to oral diuretics in anticipation of discharge. Judd Longoria M.D. DR: ABDELRAHMAN JOB#: [id number] CC:
[2017-12-28 08:31] VITALS: BP 130/51
[2017-12-28] MEDS ORDERED: Furosemide 40mg tab ORAL SCH (09:00)
[2017-12-28] MEDS: Spironolactone 25mg tab ORAL SCH (10:30)
[2017-12-28] MEDS: Aspirin Baby 81mg NG SCH (10:30)
[2017-12-28] MEDS: Carvedilol 25mg Tab ORAL SCH (10:31)
[2017-12-28] MEDS: Lisinopril 20mg tab ORAL SCH (10:32)
[2017-12-28] MEDS: KETOROLAC 0.4% OPHTHALM SCH ×2 (10:41→14:40)
--- NOTE | 2017-12-28 10:53 | Cardiology Report ---
APPROVED REPORT EXAM: Two-dimensional and M-mode echocardiogram with Doppler and color Doppler. INDICATION PERICARDIAL EFFUSIOM M-Mode DIMENSIONS IVSd1.4 (0.7-1.1cm)Left Atrium (MM)4.0 (1.6-4.0cm) LVDd6.6 (3.5-5.6cm)Aortic Root3.7 (2.0-3.7cm) PWd1.7 (0.7-1.1cm)Aortic Cusp Exc.1.6 (1.5-2.0cm) IVSs2.1 cm LVDs4.5 (2.5-4.0cm) PWs2.2 cm Normal left ventricular chamber size, mildly depressed systolic function and wall motion. Left ventricular ejection fraction estimated to be 50 %. Mild left ventricular hypertrophy by 2-D. Trace posterior pericardial effusion. Pleural effusion . Mild Left atrial enlargement. Right cardiac chamber sizes are within normal limits. Moderately Focal aortic valve sclerosis with adequate cusp excursion. Moderately Thickened mitral valve leaflets with normal excursion. moderatly Mitral annulus and aortic root calcification. Normal pulmonic valve structure. Normal tricuspid valve structure. IVC dilated at 2.6cm without physiologic collapse suggestive of increased RA pressure. Pacemaker wire present in the right side chambers. A color flow and spectral Doppler study was performed and revealed: Mild aortic regurgitation. Mild to Moderate, mitral regurgitation. Mitral diastolic velocities suggest reduced left ventricular relaxation c/w mild LV diastolic dysfunction (Grade I ). Mild tricuspid regurgitation. Tricuspid systolic velocities suggests peak right ventricular systolic pressure of 40 mmHg, consistent with moderate pulmonary hypertension. Trace Pulmonic regurgitation present
[2017-12-28 11:54] VITALS: BP 145/49
[2017-12-28 12:15] VITALS: BP 156/64
[2017-12-28 12:20] VITALS: BP 156/64
[2017-12-28] MEDS ORDERED: ACETAMINOPHEN325 M1 ORAL (12:50)
[2017-12-28] MEDS ORDERED: ASPIR 8181 MG ORAL (12:51)
[2017-12-28] MEDS ORDERED: NORVASC5 MG ORAL (12:51)
[2017-12-28] MEDS ORDERED: COREG25 MG ORAL (12:52)
[2017-12-28] MEDS ORDERED: LOVENOX10 MG SUBQ (12:53)
[2017-12-28] MEDS ORDERED: CEFEPIME-D2 GM/50 ML IVPB (12:54)
[2017-12-28] MEDS ORDERED: FUROSEMIDE40 MG ORAL (12:55)
[2017-12-28] MEDS ORDERED: APRESOLINE50 MG ORAL (12:56)
[2017-12-28] MEDS ORDERED: HYDRALAZINE HCL25 M2 PO (12:57)
[2017-12-28] MEDS ORDERED: PREVACID30 MG ORAL (12:58)
[2017-12-28] MEDS ORDERED: LISINOPRIL20 MG ORAL (12:59)
[2017-12-28] MEDS ORDERED: ATIVAN1 MG ORAL (13:02)
[2017-12-28] MEDS ORDERED: KETOROLAC TROMET5 M1 LEFT EYE (13:04)
[2017-12-28] MEDS ORDERED: MOM30 ML ORAL (13:06)
[2017-12-28] MEDS ORDERED: MILK OF MA2400 MG/10 ORAL (13:06)
[2017-12-28] MEDS ORDERED: ALDACTONE25 MG ORAL (13:07)
[2017-12-28] MEDS ORDERED: AMBIEN5 MG ORAL (13:08)
--- NOTE | 2017-12-28 14:52 | Diagnostic Imaging Report ---
Indication: Chest pain Technique: XRAY Chest 1v Comparison: 12/23/2017 Findings: Interval removal of endotracheal and enteric tubes. Right arm PICC line unchanged. Pacemaker again noted. Heart size and mediastinal contours are stable. There is increased retrocardiac opacification with interval blunting of the left costophrenic sulcus. There is no interval pneumothorax. There is osteopenia and degenerative change of the spine. Impression: Interval worsening of aeration with increasing left basilar/retrocardiac opacities likely related to a combination of layering pleural fluid and atelectasis/consolidation. Correlate clinically to exclude superimposed infection. Follow-up exam recommended.
[2017-12-28] MEDS ORDERED: Tubing IV Secondary IV ONE (14:59)
[2017-12-28] MEDS ORDERED: NS 275ml ONE (14:59)
--- NOTE | 2017-12-28 22:30 | Progress Note ---
DATE: 12/28/2017 CARDIOLOGY PROGRESS NOTE SUBJECTIVE: The patient had an episode of chest pain this morning, which resolved spontaneously. Her concomitant EKG revealed sinus rhythm with left bundle-branch block unchanged from prior studies. The patient's discharge medication regimen was reviewed in detail with her in front of the nursing staff this morning. The patient is refusing oral furosemide and states that she "passes out from it." I made her aware that she has been on this drug for the past 5 to 6 days here at the hospital and has no problem. I suggested that her symptoms were related to nitroglycerin in the past, but she refuses to accept that. The patient is not willing to take the diuretic and I have explained to her that this would result in recurring heart failure in the future. OBJECTIVE: VITAL SIGNS: Blood pressure 145/49, pulse 61, respiratory rate 20, afebrile. LUNGS: Clear. CARDIAC: Regular rhythm and rate. Normal S1. Paradoxically split S2. A 1/6 systolic murmur at apex. ABDOMEN: Obese and soft. EXTREMITIES: No edema. LABORATORY DATA: White count 6.5, hemoglobin 8. Potassium 4, BUN 58, creatinine 2.1. Pro-natriuretic peptide is decreased to 20,000 from persistent levels above 35,000. Albumin is 2.0. IMPRESSION: 1. Ischemic cardiomyopathy. 2. Chronic right coronary artery occlusion with associated episodes of angina. 3. Cardiac defibrillator. 4. History of ventricular and atrial arrhythmias. 5. Acute on chronic diastolic and systolic congestive heart failure, now compensated. 6. Status post respiratory failure. 7. Healthcare-acquired pneumonia. PLAN: 1. Stable for [facility]. 2. Antimicrobials and respiratory hygiene outlined by Dr. Murray from Pulmonary. 3. Discharge cardiovascular regimen was discussed in detail with the patient and include several antihypertensive and anti-failure drugs, anti-platelet therapy, and diuretics. The patient again refuses furosemide. She will consider as an outpatient and this was discussed with her primary care physician. No nitrates are prescribed as she refuses this class of drugs as well due to prior intolerance. Judd Longoria M.D. : ARTIE/liset JOB#: [id number] CC:
--- NOTE | 2017-12-30 08:38 | Discharge Summary ---
Discharge Summary Discharge Summary Discharge Summary DATE OF ADMISSION: 12/21/2017 DATE OF DISCHARGE: 12/28/2017 REASON FOR ADMISSION: 82 years old female, with past medical history significant for coronary artery disease with myocardial infarction, arrhythmia with cardiac defibrillator, hypertension, hypertensive heart disease, hyperlipidemia, COPD, chronic kidney disease, congestive heart failure, was transferred from halfway facility for evaluation due to unresponsiveness. She was found to be in acute respiratory failure and required oral intubation. Laboratory workup revealed no leukocytosis, evidence of anemia with hemoglobin 9.8 hematocrit 31.2, renal insufficiency BUN 32 creatinine 2.1, pro BNP 23812, troponin was negative. ECG revealed normal sinus rhythm, no acute ischemic changes.ABG revealed evidence of respiratory acidosis with low pH and hypercapnia. Lactic acid 1.9. Chest x-ray revealed bilateral interstitial and airspace disease, infiltrates versus edema. Borderline cardiomegaly. Satisfactory endotracheal intubation. CT of the head revealed chronic age-related changes, but was negative for acute intracranial bleeding or mass effect. Patient was admitted to ICU with diagnosis of acute respiratory failure requiring intubation, congestive heart failure, COPD, pneumonia, anemia, hypertensive heart disease, CONSULTANTS: school teacher [facility] COURSE: Patient admitted to ICU. Ventilator support and pulmonary toilet provided. Patient started on diuresis and empiric antibiotic. Cardiology consult was requested. Serial troponin 2 were negative. Rn Radiology closely followed patient. Titration of antihypertensive regimen was done, beta blockage was continued. Patient was on anti-failure medication regimen. Antiplatelet therapy and statin were continued. Patient started on empiric antibiotics for healthcare associated pneumonia. DVT and GI prophylaxis provided. NG tube was inserted for nutrition and medication. Echocardiogram revealed ejection fraction 55-60% with mild left ventricular hypertrophy. [id number] pericardial effusion with partial RA free wall collapse. Right ventricular systolic pressure of 30. Patient was followed up with the serial ABGs, acute respiratory acidosis resolved. Patient was started on weaning protocol. On December 23 patient was able to be weaned from the ventilator. Supplemental oxygen provided as needed to keep pulse oximetry above 92%. Respiratory toilet provided via nebulizing treatment with bronchodilator on as needed basis. Diuresis was continued with close monitoring of cardiorenal parameters and volumes. Follow up chest x-ray revealed slight interval improvement with decreasing bilateral interstitial opacities /edema. Repeated echocardiogram was done for cardiac tamponade surveillance. It revealed ejection fraction of 50% with moderately depressed systolic function and wall motion. Normal left ventricular chamber size. Trace posterior pericardial effusion. Increased right atrial pressure. [id number] mitral regurgitation. Mild left ventricular diastolic dysfunction. Mild tricuspid regurgitation. Right ventricular systolic pressure of 40 consistent with moderate pulmonary hypertension. Follow-up echocardiogram revealed no progression of pericardial effusion and actual decrease in the size, no signs of acute pericardial tamponade. Blood pressure remained elevated. Antihypertensive regimen uptitrated, i.e. hydralazine was added to existing regimen. Blood pressure improved. Hemoglobin and hematocrit were closely monitored with goal to keep hemoglobin above 8. No need for transfusion. Stool for occult blood was positive. Patient will have outpatient anemia workup and close monitoring of counts, given positive Hemoccult stool. . Rn Radiology closely followed. Cardiogenic shock resolved. Congestive heart failure improved. Pericardial effusion with no signs of pericardial tamponade, decreased per echocardiogram, and remained small and stable. Acute respiratory failure resolved ,prior to discharge patient was on room air with stable pulse oximetry. Per school teacher, patient had chronic right coronary occlusion and recent myocardial infarction but currently with stable angina. Blood pressure improved after up-titrating of antihypertensive regimen. Renal parameters remained on the baseline. Diuretic changed to oral prior to discharge. Assembly Hand closely followed. Patient with severe protein calorie malnutrition. Protein supplements added to diet. Patient was stable for discharge back to halfway facility to complete antibiotic course. Cardiovascular regimen was discussed in detail with the patient by school teacher, including antihypertensive, anti-failure drugs, antiplatelet therapy , diuretic and statin. No nitrates were prescribed since patient refused this class due to prior intolerance. . Patient was stable for discharge back to halfway facility FINAL DIAGNOSES: Acute hypoxemic hypercapnic respiratory failure requiring intubation ( s/p extubation 12/23/17) Cardiogenic shock, resolved Pericardial effusion with no signs of cardiac tamponade, improved Acute on chronic systolic and diastolic congestive heart failure, improved Acute on chronic respiratory acidosis, resolved Hypertensive cardiomyopathy Hypertensive urgency Ischemic heart disease with history of [place] and chronic right coronary occlusion Healthcare associated pneumonia Acute on chronic renal failure Severe protein calorie malnutrition Anemia DISCHARGE MEDICATIONS: See Medication Reconciliation list. DISCHARGE INSTRUCTIONS: Patient was discharged to halfway facility. Follow up with medical doctor at the facility. I have been assigned to dictate discharge summary for this account. I was not involved in the patient's management. Cata Jacome NP ([place]) December 30, 2017 08:38
== END 2017-12-28 15:00 | DRG 208 ==
LOC: EDBD 17:12 → EMR 18:07 → ICU 18:09 → EDBEDREQ 18:21 → 2W 12-25 08:14 → 4W 12-26 22:50
PROC: 0BH17EZ Insertion of Endotracheal Airway into Trachea, Via Natural or Artificial Opening (ICD-10-PCS; principal; 2017-12-21)
PROC: 5A1945Z Respiratory Ventilation, 24-96 Consecutive Hours (ICD-10-PCS; principal; 2017-12-21)
DX: J96.01 Acute respiratory failure with hypoxia (principal); J18.9 Pneumonia, unspecified organism; I50.43 Acute on chronic combined systolic (congestive) and diastolic (congestive) heart failure; E43 Unspecified severe protein-calorie malnutrition; R57.0 Cardiogenic shock; I13.0 Hypertensive heart and chronic kidney disease with heart failure and stage 1 through stage 4 chronic kidney disease, or unspecified chronic kidney disease; N17.9 Acute kidney failure, unspecified; I31.3 Pericardial effusion (noninflammatory); E87.2 Acidosis; J96.02 Acute respiratory failure with hypercapnia; N18.9 Chronic kidney disease, unspecified; Z95.810 Presence of automatic (implantable) cardiac defibrillator; I25.10 Atherosclerotic heart disease of native coronary artery without angina pectoris; Z87.891 Personal history of nicotine dependence; J44.9 Chronic obstructive pulmonary disease, unspecified; D64.9 Anemia, unspecified; I25.9 Chronic ischemic heart disease, unspecified; I25.2 Old myocardial infarction; E78.5 Hyperlipidemia, unspecified; Z88.6 Allergy status to analgesic agent; Z88.8 Allergy status to other drugs, medicaments and biological substances; I16.0 Hypertensive urgency; I20.9 Angina pectoris, unspecified; I34.0 Nonrheumatic mitral (valve) insufficiency; I36.1 Nonrheumatic tricuspid (valve) insufficiency; I27.20 Pulmonary hypertension, unspecified
CPT/HCPCS: 36415; 36600; 70450; 71045; 74018; 80048; 80053; 80061; 80069; 80076; 80202; 81003; 82164; 82270; 82550; 82553; 82803; 83605; 83690; 83735; 83880; 84443; 84478; 84484; 85007; 85025; 86850; 86900; 86901; 87040; 87070; 87081; 87205; 93005; 93306; 94002; 94003; 94640; 94664; 94760; 99291; J7620; J8499